=== PATIENT | female | born 1985 | race American Indian/Alaskan Native ===

== ENCOUNTER 2018-02-22 08:51 | Emergency (ER) | payer BC ==
[2018-02-22 09:02] VITALS: BP 128/83
[2018-02-22] MEDS ORDERED: XYLOCAINE 1% MPF 5 mL ONE (09:55)
[2018-02-22] MEDS ORDERED: XYLOCAINE 1%/ EPI 1:100,000 INFILTRATI ONE (09:59)
[2018-02-22] MEDS ORDERED: XYLOCAINE 1% MPF 5 mL INFILTRATI ONE (10:08)
[2018-02-22 10:13] LABS: HCG Qualitative,Urine Positive (Negative)
[2018-02-22 10:16] LABS: Bacteria,Urine 1+ /HPF (Negative); Bilirubin,Urine NEG (Negative); Blood,Urine NEG (Negative); Color,Urine Yellow (Yellow); Mucus,Urine 1+ /HPF; Protein,Urine <15 mg/dL mg/dL (Negative); Urobilinogen,Urine < 2.0 mg/dL (<2.0)
--- NOTE | 2018-02-22 10:54 | Emergency Department Report ---
ED Female HPI - General Chief complaint: Urogenital-Female Stated complaint: BOIL/VAGINA Time Seen by Provider: 02/22/18 09:45 Source: patient Mode of arrival: Ambulatory Limitations: No Limitations - History of Present Illness Initial comments: ms Morrison is a 32 year-old woman who presents with vaginal dc, vaginal swelling. Large swollen boil since tuesday. has been applying heat packs without any drainage. is 9 weeks , has OB. No home meds. Noticed some dysuria and vaginal dc for 3-4 days as well. no fever. No abdominal pain. MD Complaint: vaginal discharge, dysuria - Related Data Previous Rx's Medication Instructions Recorded Last Taken Type Fluconazole [Diflucan] 150 mg PO ONCE #1 tablet 02/11/18 Unknown Rx Labetalol [Normodyne TAB] 100 mg PO BID #60 tablet 02/11/18 Unknown Rx Nitrofurantoin Monohyd/M-Cryst 100 mg PO BID #10 capsule 02/11/18 Unknown Rx [Macrobid 100 mg Capsule] Amoxicillin/K Clav Tab [Augmentin 1 tab PO QDAY #7 tab 02/22/18 Unknown Rx 875 mg] Allergies Allergy/AdvReac Type Severity Reaction Status Date / Time iodine Allergy Hives Verified 02/11/18 11:18 shellfish derived Allergy Hives Verified 02/22/18 08:57 ED Review of Systems ROS: Stated complaint: BOIL/VAGINA Other details as noted in HPI Comment: All other systems reviewed and negative ED Past Medical Hx - Past Medical History Previous Medical History?: Yes Hx Hypertension: Yes Hx Asthma: Yes - Surgical History Past Surgical History?: No - Social History Smoking Status: Never Smoker Substance Use Type: None - Medications Home Medications: Home Medications Medication Instructions Recorded Confirmed Last Taken Type Fluconazole [Diflucan] 150 mg PO ONCE #1 tablet 02/11/18 Unknown Rx Labetalol [Normodyne TAB] 100 mg PO BID #60 tablet 02/11/18 Unknown Rx Nitrofurantoin Monohyd/M-Cryst 100 mg PO BID #10 capsule 02/11/18 Unknown Rx [Macrobid 100 mg Capsule] Amoxicillin/K Clav Tab [Augmentin 1 tab PO QDAY #7 tab 02/22/18 Unknown Rx 875 mg] ED Physical Exam - General Limitations: No Limitations General appearance: alert, in no apparent distress - Head Head exam: Present: atraumatic, normocephalic - Eye Eye exam: Present: normal appearance - ENT ENT exam: Present: normal exam, mucous membranes moist - GI/Abdominal GI/Abdominal exam: Present: soft. Absent: distended, tenderness, guarding - External exam: Present: swelling, other (Large right labial swelling, fluctuance , ttp, no drainage). Absent: bleeding Speculum exam: Present: normal speculum exam, vaginal discharge. Absent: cervical discharge, vaginal bleeding, foreign body Bi-manual exam: Present: normal bi-manual exam. Absent: cervical motion tendernes, adnexal tenderness, adnexal mass - Neurological Exam Neurological exam: Present: alert, oriented X3, normal gait - Skin Skin exam: Present: warm, dry, intact ED Course Vital Signs 02/22/18 08:57 Temperature 99.1 F Pulse Rate 86 Respiratory 16 Rate Blood Pressure 128/83 O2 Sat by Pulse 97 Oximetry - I & D Right Vagina Type of Procedure: Simple Site: R labia Blade Size: 11 I & D Procedure: betadine prep Progress: left labial abscess. Appears to be bartholins gland abscess. Chlorhexidine prep. Local anesthestic with 1% lidocaine with epi, 2mL. Incised and drained with 11-blade. about 10mL pus drained. Tolerated well. ED Medical Decision Making - Medical Decision Making Ms Morrison is a 32 year-old woman who presents with vaginal swelling, vaginal dc , dysuria. Exam with large bartholins abscess, drained per procedure note. Scant white vaginal dc. No abdominal ttp. Suspect BV vs GC/CT vs UTI. Is , knows this. Has OB. UA with evidence of UTI. Wet prep neg. GC/CT pending. Large bartholins abscess, will treat. Home with augmentin 875mg qd x 7 days. Has OB follow-up next week. Augmentin should treat UTI, will have test of cure with OB. Safe for dc to home. Critical care attestation.: If time is entered above; I have spent that time in minutes in the direct care of this critically ill patient, excluding procedure time. ED Disposition Clinical Impression: Bartholin's gland abscess Urinary tract infection Qualifiers: Urinary tract infection type: acute cystitis Hematuria presence: without hematuria Qualified Code(s): N30.00 - Acute cystitis without hematuria Qualifiers: Weeks of gestation: 9 weeks Qualified Code(s): Z3A.09 - 9 weeks gestation of Disposition: DC-01 TO HOME OR SELFCARE Is pt being admited?: No Condition: Stable Instructions: Incision and Drainage (ED), Urinary Tract Infection in Women (ED) Referrals: PRIMARY CARE,MD [Primary Care Provider] - 7-10 days (Your GLOBAL MOBILITY SPECIALIST. you need to have a repeat urinalysis done!)
[2018-02-22] MEDS ORDERED: PERCOCET 5/325 PO ONE (11:23)
== END 2018-02-22 11:30 | disposition home or self-care (01) ==
LOC: ED 08:51
DX: O23.591 Infection of other part of genital tract in pregnancy, first trimester (principal); N30.00 Acute cystitis without hematuria; N75.1 Abscess of Bartholin's gland; I10 Essential (primary) hypertension; J45.909 Unspecified asthma, uncomplicated; Z91.013 Allergy to seafood; Z3A.09 9 weeks gestation of pregnancy; Z91.02 Food additives allergy status
CPT/HCPCS: 81001; 81025; 87210; 87591

== ENCOUNTER 2018-04-01 11:39 | Emergency (ER) | payer BC ==
--- NOTE | 2018-04-01 11:56 | Emergency Department Report ---
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 She is 3, para 1. Her last menstrual period is the first. She has a history of associated hypertension, and is currently on labetalol. She presents to the ER with abdominal cramping that is nontraumatic and vaginal bleeding since last night. Her symptoms are constant, the cramping increases with palpation, decreases with rest, and she has used one to 2 pads in the past few hours. MD Complaint: vaginal bleeding, pelvic pain, other (abdominal cramping) -: Gradual Radiation: suprapubic Severity: moderate Quality: cramping Consistency: intermittent Improves with: other Worsens with: other Are you Now?: Yes Associated Symptoms: vaginal bleeding, abdominal pain, loss of appetite, dysuria. denies: vaginal discharge, nausea/vomiting, fever/chills, headaches, hematuria, rash, seizure, shortness of breath, syncope, weakness - Related Data Sexually active: Yes Previous Rx's Medication Instructions Recorded Last Taken Type Fluconazole [Diflucan] 150 mg PO ONCE #1 tablet 02/11/18 Unknown Rx Labetalol [Normodyne TAB] 100 mg PO BID #60 tablet 02/11/18 Unknown Rx Nitrofurantoin Monohyd/M-Cryst 100 mg PO BID #10 capsule 02/11/18 Unknown Rx [Macrobid 100 mg Capsule] Amoxicillin/K Clav Tab [Augmentin 1 tab PO QDAY #7 tab 02/22/18 Unknown Rx 875 mg] Acetaminophen [Tylenol Arthritis] 650 mg PO Q6HR PRN #30 tablet.er 04/01/18 Unknown Rx Doxylamine Succinate/Vit B6 1 each PO QHS PRN #30 tablet. 04/01/18 Unknown Rx [Divine Aragon 10-10 mg Tablet] Nitrofurantoin Ashley/M-Cryst 100 mg PO Q12HR #14 capsule 04/01/18 Unknown Rx [Macrobid CAP] Vit Calc,Iron,Folic 1 each PO QDAY #30 tablet 04/01/18 Unknown Rx [ Vitamins] Allergies Allergy/AdvReac Type Severity Reaction Status Date / Time iodine Allergy Hives Verified 04/01/18 11:41 shellfish derived Allergy Hives Verified 04/01/18 11:41 ED Review of Systems ROS: Stated complaint: [email or web address] Other details as noted in HPI Comment: All other systems reviewed and negative ED Past Medical Hx - Past Medical History Hx Hypertension: Yes Hx Asthma: Yes - Social History Smoking Status: Former Smoker Substance Use Type: None - Medications Home Medications: Home Medications Medication Instructions Recorded Confirmed Last Taken Type Fluconazole [Diflucan] 150 mg PO ONCE #1 tablet 02/11/18 Unknown Rx Labetalol [Normodyne TAB] 100 mg PO BID #60 tablet 02/11/18 Unknown Rx Nitrofurantoin Monohyd/M-Cryst 100 mg PO BID #10 capsule 02/11/18 Unknown Rx [Macrobid 100 mg Capsule] Amoxicillin/K Clav Tab [Augmentin 1 tab PO QDAY #7 tab 02/22/18 Unknown Rx 875 mg] Acetaminophen [Tylenol Arthritis] 650 mg PO Q6HR PRN #30 tablet.er 04/01/18 Unknown Rx Doxylamine Succinate/Vit B6 1 each PO QHS PRN #30 tablet. 04/01/18 Unknown Rx [Divine Aragon 10-10 mg Tablet] Nitrofurantoin Ashley/M-Cryst 100 mg PO Q12HR #14 capsule 04/01/18 Unknown Rx [Macrobid CAP] Vit Calc,Iron,Folic 1 each PO QDAY #30 tablet 04/01/18 Unknown Rx [ Vitamins] ED Physical Exam - General Limitations: No Limitations General appearance: alert, anxious, obese - Head Head exam: Present: atraumatic, normocephalic - Eye Eye exam: Present: normal appearance, EOMI. Absent: nystagmus - ENT ENT exam: Present: normal exam, normal orophraynx, mucous membranes moist, normal external ear exam - Neck Neck exam: Present: normal inspection, full ROM - Respiratory Respiratory exam: Present: normal lung sounds bilaterally. Absent: respiratory distress - Cardiovascular Cardiovascular Exam: Present: regular rate, normal rhythm, normal heart sounds. Absent: bradycardia, tachycardia, irregular rhythm, systolic murmur, diastolic murmur, rubs, gallop - GI/Abdominal GI/Abdominal exam: Present: soft, normal bowel sounds. Absent: distended, tenderness, guarding, rebound, rigid, pulsatile mass - External exam: Present: normal external exam Speculum exam: Present: normal speculum exam, vaginal bleeding, other ( chaperonne: MARCELINO Linton). Absent: laceration - Extremities Exam Extremities exam: Present: normal inspection, full ROM, normal capillary refill , other (2+ pulses noted in the bilateral upper, lower extremities. Compartments soft. No long bony tenderness. The pelvis is stable.). Absent: pedal edema, joint swelling, calf tenderness - Back Exam Back exam: Present: normal inspection, full ROM. Absent: tenderness, CVA tenderness (R), paraspinal tenderness, vertebral tenderness - Neurological Exam Neurological exam: Present: alert, oriented X3, CN II-XII intact, normal gait, other (Extraocular movements intact. Tongue midline. No facial droop. Facial sensation intact to light touch in the V1, V2, V3 distribution bilaterally. 5 and 5 strength in 4 extremities.. Sensation is intact to light touch in 4 extremities.). Absent: motor sensory deficit - Psychiatric Psychiatric exam: Present: anxious - Skin Skin exam: Present: warm, dry, intact, normal color. Absent: rash ED Course Vital Signs 04/01/18 04/01/18 04/01/18 11:42 12:24 12:30 Temperature 98.3 F Pulse Rate 99 H 96 H Respiratory 22 16 Rate Blood Pressure 159/113 142/96 Blood Pressure [Right] O2 Sat by Pulse 100 99 98 Oximetry 04/01/18 04/01/18 04/01/18 12:54 13:00 13:46 Temperature Pulse Rate 93 H 95 H 83 Respiratory 16 20 Rate Blood Pressure 142/96 138/93 Blood Pressure 142/96 [Right] O2 Sat by Pulse 100 100 Oximetry 04/01/18 04/01/18 14:13 14:30 Temperature Pulse Rate 94 H 111 H Respiratory 16 19 Rate Blood Pressure 138/93 138/93 Blood Pressure [Right] O2 Sat by Pulse Oximetry - Reevaluation(s) Reevaluation #1: 04/01/18 14:16 Differential diagnosis, including but not limited to: Miscarriage, was sent appropriate, urinary tract infection, hypertension associated with Assessment and plan: 32-year-old female who by dates is approximately 4 months with nontraumatic vaginal bleeding and cramping. She is somewhat hypertensive, but reports having been hypertensive for the past 4 months, reports compliance with her labetalol therapy, does not have lower extremity edema, a urinalysis is pending and liver function tests were unremarkable. Her presentation at this point in time is not consistent with preeclampsia. She is Rh+, and a pelvic ultrasound interpretation is pending at this time. We will discuss with her winchman/crane operator once the ultrasound has been interpreted. Reevaluation #2: 04/01/18 15:22 The patient reports she is going to see her winchman/crane operator on Tuesday ED Medical Decision Making - Lab Data Result diagrams: 04/01/18 12:12 04/01/18 12:12 Vital Signs 04/01/18 04/01/18 04/01/18 11:42 12:24 12:30 Temperature 98.3 F Pulse Rate 99 H 96 H Respiratory 22 16 Rate Blood Pressure 159/113 142/96 Blood Pressure [Right] O2 Sat by Pulse 100 99 98 Oximetry 04/01/18 04/01/18 04/01/18 12:54 13:00 13:46 Temperature Pulse Rate 93 H 95 H 83 Respiratory 16 20 Rate Blood Pressure 142/96 138/93 Blood Pressure 142/96 [Right] O2 Sat by Pulse 100 100 Oximetry Lab Results 04/01/18 04/01/18 04/01/18 Range/Units 12:12 12:12 12:12 WBC 10.6 (4.5-11.0) K/mm3 RBC 4.51 (3.65-5.03) M/mm3 Hgb 13.8 (10.1-14.3) gm/dl Hct 41.2 (30.3-42.9) % MCV 91 (79-97) fl MCH 31 (28-32) pg MCHC 33 (30-34) % RDW 14.1 (13.2-15.2) % Plt Count 303 (140-440) K/mm3 Lymph % (Auto) 29.5 (13.4-35.0) % Ashley % (Auto) 5.3 (0.0-7.3) % Eos % (Auto) 2.0 (0.0-4.3) % Baso % (Auto) 0.4 (0.0-1.8) % Lymph # 3.1 (1.2-5.4) K/mm3 Ashley # 0.6 (0.0-0.8) K/mm3 Eos # 0.2 (0.0-0.4) K/mm3 Baso # 0.0 (0.0-0.1) K/mm3 Seg Neutrophils % 62.8 (40.0-70.0) % Seg Neutrophils # 6.6 (1.8-7.7) K/mm3 Sodium (137-145) mmol/L Potassium (3.6-5.0) mmol/L Chloride (98-107) mmol/L Carbon Dioxide (22-30) mmol/L Anion Gap mmol/L BUN (7-17) mg/dL Creatinine (0.7-1.2) mg/dL Estimated GFR ml/min BUN/Creatinine Ratio % Glucose (65-100) mg/dL Calcium (8.4-10.2) mg/dL Total Bilirubin (0.1-1.2) mg/dL AST (5-40) units/L ALT (7-56) units/L Alkaline Phosphatase (35-129) units/L Total Protein (6.3-8.2) g/dL Albumin (3.9-5) g/dL Albumin/Globulin Ratio % HCG, Quant 26403 H (0-4) mIU/mL Blood Type A POSITIVE Antibody Screen Negative 04/01/18 Range/Units 12:12 WBC (4.5-11.0) K/mm3 RBC (3.65-5.03) M/mm3 Hgb (10.1-14.3) gm/dl Hct (30.3-42.9) % MCV (79-97) fl MCH (28-32) pg MCHC (30-34) % RDW (13.2-15.2) % Plt Count (140-440) K/mm3 Lymph % (Auto) (13.4-35.0) % Ashley % (Auto) (0.0-7.3) % Eos % (Auto) (0.0-4.3) % Baso % (Auto) (0.0-1.8) % Lymph # (1.2-5.4) K/mm3 Ashley # (0.0-0.8) K/mm3 Eos # (0.0-0.4) K/mm3 Baso # (0.0-0.1) K/mm3 Seg Neutrophils % (40.0-70.0) % Seg Neutrophils # (1.8-7.7) K/mm3 Sodium 137 (137-145) mmol/L Potassium 3.7 (3.6-5.0) mmol/L Chloride 99.1 (98-107) mmol/L Carbon Dioxide 23 (22-30) mmol/L Anion Gap 19 mmol/L BUN 6 L (7-17) mg/dL Creatinine 0.6 L (0.7-1.2) mg/dL Estimated GFR > 60 ml/min BUN/Creatinine Ratio 10 % Glucose 76 (65-100) mg/dL Calcium 9.5 (8.4-10.2) mg/dL Total Bilirubin 0.20 (0.1-1.2) mg/dL AST 38 (5-40) units/L ALT 54 (7-56) units/L Alkaline Phosphatase 49 (35-129) units/L Total Protein 7.5 (6.3-8.2) g/dL Albumin 3.8 L (3.9-5) g/dL Albumin/Globulin Ratio 1.0 % HCG, Quant (0-4) mIU/mL Blood Type Antibody Screen - Radiology Data Radiology results: pending, report reviewed, image reviewed [place] [id number] Ultrasound Report Signed Patient: SIMONE MCKINNON MR#: [id number] : 1985 Acct:[id number] Age/Sex: 32 / F ADM Date: 04/01/18 Loc: ED Attending Dr: Ordering Physician: LISA PRATT MD Date of Service: 04/01/18 Procedure(s): US OB >= 14 weeks Fetus Accession Number(s): [id number] cc: LISA PRATT MD FINAL REPORT EXAM: US OB gt; = 14 WEEKS FETUS HISTORY: vag bleed TECHNIQUE: Transabdominal OB ultrasound. PRIORS: Earliest OB ultrasound February 11, 2018. FINDINGS: Single intrauterine dates 16.3 weeks. THEE equals September 13, 2018. This is 4 days older compared to the prior ultrasound and is within normal limits. EFW equals 151 g. percentile equals 70%. BPD: 16.3 weeks. HC: 16.5 weeks. AC: 16.1 weeks. FL: 16.2 weeks. AC/AC ratio: 1.30 Cephalic index 81.1. Within normal limits. Presentation: Breech. Placenta: Posterior. Grade 0. No previa. heart rate: 147 BPM. Amniotic fluid index: Within normal limits. Closed cervix measures 4.1 cm. No subchorionic bleed. IMPRESSION: Single live intrauterine . Transcribed By: TYM Dictated By: LILLIAN BROWNLEE MD Electronically Authenticated By: LILLIAN BROWNLEE MD Signed Date/Time: 04/01/18 2340 Critical care attestation.: If time is entered above; I have spent that time in minutes in the direct care of this critically ill patient, excluding procedure time. ED Disposition Clinical Impression: Vaginal bleeding before 22 weeks gestation Disposition: DC-01 TO HOME OR SELFCARE Is pt being admited?: No Does the pt Need Aspirin: No Condition: Stable Instructions: Threatened Miscarriage (ED) Additional Instructions: Rest, and avoid heavy lifting. Avoid strenuous physical activity. Take the medications as needed/directed. Avoid heavy lifting, and avoid sexual activity. Follow-up with her winchman/crane operator or high risk perinatologist within the next 3-5 days. [facility] associates: Address: [address] [place] [address] [address], [place] [address] Return to the ER right away with new pain, worsening pain, migration of pain, fevers, chills, lethargy, irritability, projectile vomiting, change in mental status, confusion, inability to tolerate liquid feeds. Prescriptions: Doxylamine Succinate/Vit B6 [Divine Aragon 10-10 mg Tablet] 1 each PO QHS PRN #30 tablet. PRN Reason: Nausea Acetaminophen [Tylenol Arthritis] 650 mg PO Q6HR PRN #30 tablet.er PRN Reason: Pain Nitrofurantoin Ashley/M-Cryst [Macrobid CAP] 100 mg PO Q12HR #14 capsule Vit Calc,Iron,Folic [ Vitamins] 1 each PO QDAY #30 tablet Referrals: PRIMARY CAREMD [Primary Care Provider] - 3-5 Days [facility] [Provider Group] - 3-5 Days
[2018-04-01] MEDS ORDERED: TYLENOL PO ONE (12:58)
[2018-04-01 13:00] LABS: Basophils % (Auto) 0.4 % (0.0-1.8); Eosinophils # (Auto) 0.2 K/mm3 (0.0-0.4); Hematocrit 41.2 % (30.3-42.9); Hemoglobin 13.8 gm/dl (10.1-14.3); Lymphocytes # (Auto) 3.1 K/mm3 (1.2-5.4); Lymphocytes % (Auto) 29.5 % (13.4-35.0); Mean Corpuscular HGB Conc 33 % (30-34); Mean Corpuscular Hemoglobin 31 pg (28-32); Mean Corpuscular Volume 91 fl (79-97); Monocytes # (Auto) 0.6 K/mm3 (0.0-0.8); Monocytes % (Auto) 5.3 % (0.0-7.3); Platelet Count 303 K/mm3 (140-440); Red Blood Count 4.51 M/mm3 (3.65-5.03); Red Cell Distribution Width 14.1 % (13.2-15.2)
[2018-04-01 13:37] LABS: Alanine Aminotransferase 54 units/L (7-56); Albumin 3.8 g/dL (3.9-5); BUN/Creatinine Ratio 10; Blood Urea Nitrogen 6 mg/dL (7-17); Calcium 9.5 mg/dL (8.4-10.2); Hemolysis Index 3
[2018-04-01 14:12] VITALS: BP 138/93
[2018-04-01 14:34] LABS: Bacteria,Urine 1+ /HPF (Negative); Bilirubin,Urine NEG (Negative); Blood,Urine LG (Negative); Mucus,Urine FEW /HPF; Urobilinogen,Urine < 2.0 mg/dL (<2.0)
[2018-04-01 14:35] LABS: Color,Urine Red (Yellow); RBC,Urine > 182.0 /HPF (0.0-6.0)
--- NOTE | 2018-04-01 14:42 | Ultrasound Report ---
FINAL REPORT EXAM: US OB > = 14 WEEKS FETUS HISTORY: vag bleed TECHNIQUE: Transabdominal OB ultrasound. PRIORS: Earliest OB ultrasound February 11, 2018. FINDINGS: Single intrauterine dates 16.3 weeks. THEE equals September 13, 2018. This is 4 days older compared to the prior ultrasound and is within normal limits. EFW equals 151 g. percentile equals 70%. BPD: 16.3 weeks. HC: 16.5 weeks. AC: 16.1 weeks. FL: 16.2 weeks. AC/AC ratio: 1.30 Cephalic index 81.1. Within normal limits. Presentation: Breech. Placenta: Posterior. Grade 0. No previa. heart rate: 147 BPM. Amniotic fluid index: Within normal limits. Closed cervix measures 4.1 cm. No subchorionic bleed. IMPRESSION: Single live intrauterine .
== END 2018-04-01 16:05 | disposition home or self-care (01) ==
LOC: ED 11:39
DX: O46.92 Antepartum hemorrhage, unspecified, second trimester (principal); I10 Essential (primary) hypertension; J45.909 Unspecified asthma, uncomplicated; Z87.891 Personal history of nicotine dependence; Z88.8 Allergy status to other drugs, medicaments and biological substances; Z91.013 Allergy to seafood; Z3A.16 16 weeks gestation of pregnancy
CPT/HCPCS: 36415; 76805; 80053; 81001; 84702; 85025; 86850; 86900; 86901; 87086; 99284

== ENCOUNTER 2018-08-18 13:25 | Observation (INO) | payer BC, MEDICAID ==
--- NOTE | 2018-08-18 18:58 | Ultrasound Report ---
FINAL REPORT PROCEDURE: US OB BPP WO NON-STRESS TECHNIQUE: Sonographic evaluation for breathing, movement, tone, and amniotic flui d volume was performed. CPT 47890 HISTORY: WELL BEING COMPARISON: No prior studies are available for comparison. FINDINGS: Amniotic fluid volume: Normal-score 2. At least one vertical pocket > 2 cm or more in vertical axi s. breathing: Normal-score 0. movement: Normal-score 2. tone: Normal. Score: 6 of 8. cardiac activity is present, with heart rate of 143 beats per minute. IMPRESSION: Abnormal biophysical profile. Abnormal breathing movements.
--- NOTE | 2018-08-18 19:07 | Ultrasound Report ---
FINAL REPORT PROCEDURE: US OB LIMITED TECHNIQUE: Real-time limited sonographic examination was performed for evaluation of position, heartbeat, fluid volume for each fetus with image documentation (1 or more fetuses). CPT 06164 HISTORY: WELL BEING COMPARISON: No prior studies are available for comparison. FINDINGS: FETUS IUP: Single living intrauterine . Position: Cephalic. Amniotic fluid volume: 8.9 centimeters Heart rate and rhythm: 143 BPM, Regular . IMPRESSION: single living intrauterine gestation. Amniotic fluid index measures 8.9 centimeters.
[2018-08-18] MEDS ORDERED: LACTATED RINGERS 1,000 ML ONE (20:14)
--- NOTE | 2018-08-18 21:01 | History and Physical Report ---
History of Present Illness Date of examination: 08/18/18 Date of admission: 08/18/2018 Chief complaint: Sent from office for NST/BPP for surveillance due to chronic hypertension, class 3 obesity. BPP 01/27 (2 off for breathing). History of present illness: 33 year old presents to L&D for BPP and NST; sent over from office for surveillance due to class 3 obesity and chronic hypertension. Patient reports she feels good movement. She denies leaking of fluid or vaginal bleeding. She denies abdominal pain or contractions. Receives care at [facility] OB-HOME HEALTH REGISTERED NURSE [facility]. significant for the following: transfer of care to at 18 5/7 weeks gestation; chronic hypertension (managed on Labetalol 300 mg po BID); class 3 obesity; positive chlamydia, treated and cured (SOLOMON negative on 04/19); asthma; with IUD and IUD unable to be removed. LMP 12/07/17. EDC 09/13/18. Past History Past Medical History: asthma, hypertension, other (obesity) Past Surgical History: other (EAB) HOME HEALTH REGISTERED NURSE History: chlamydia (treated and cured (SOLOMON negative in 03/2018)). denies: abnormal PAP smear, gonorrhea, hepatitis B, hepatitis C, HIV, syphilis Family/Genetic History: other (asthma) Social history: single, lives with family, full code. denies: smoking, alcohol abuse, prescription drug abuse, IV drug use - Obstetrical History Expected Date of Delivery: 09/13/18 Actual Gestation: 36 Week(s) 2 Day(s) : 3 Para: 1 Hx # Term Pregnancies: 1 Number of Pregnancies: 0 Spontaneous Abortions: 0 Induced : 1 Number of Living Children: 1 Medications and Allergies Allergies Allergy/AdvReac Type Severity Reaction Status Date / Time shellfish derived Allergy Severe Anaphylaxis Verified 08/18/18 19:54 aspirin Allergy Hives Verified 08/03/18 17:12 Iodinated Contrast- Oral and Allergy Anaphylaxis Verified 08/18/18 19:54 IV Dye iodine Allergy Hives Verified 08/03/18 17:12 Home Medications Medication Instructions Recorded Confirmed Last Taken Type Acetaminophen [Tylenol Arthritis] 650 mg PO Q6HR PRN #30 tablet.er 04/01/18 08/18/18 08/17/18 Rx Vit Calc,Iron,Folic 1 each PO QDAY #30 tablet 04/01/18 08/18/18 08/18/18 Rx [ Vitamins] Labetalol [Normodyne TAB] 300 mg PO BID 08/18/18 08/18/18 08/18/18 19:00 History Active Meds: Active Medications Multivitamins/Iron/Calcium ( Vitamin) 1 each PO QDAY AMADOR Review of Systems All systems: negative (BPP 6/8) - Vital Signs Vital signs: Vital Signs Temp Resp 98.3 F 08/18/18 19:44 08/18/18 19:44 Temp Pulse Resp BP Pulse Ox 98.3 F 08/18/18 19:44 08/18/18 19:44 - Physical Exam Abdomen: Positive: normal appearance, soft. Negative: distention, tenderness, guarding, rigidity Genitourinary (Female): Positive: normal external genitalia, normal perenium. Negative: perineal/vulvar lesions Uterus: Positive: enlarged. Negative: tender Extremities: Positive: normal. Negative: tenderness, edema - Obstetrical FHR: category 1 Uterine Contraction Monitor Mode: External Uterine Contraction Pattern: Absent Results All other labs normal. Assessment and Plan A: at 36 weeks, 2 days gestation. Chronic hypertension, controlled with Labetalol 300 mg po BID. Class 3 obesity. BPP 6/8 (2 off for breathing). P: Admit for 23 hour observation. Continuous EFM. Repeat BPP tomorrow. Continue Labetalol 300 mg po BID.
[2018-08-18] MEDS ORDERED: TYLENOL PO PRN (21:13)
[2018-08-18] MEDS ORDERED: LACTATED RINGERS 1,000 ML IV ONE (21:13)
[2018-08-19 00:48] LABS: Amphetamine Screen,Urine PRESUMPTIVE NEGATIVE; Benzodiazepines Screen,Urine PRESUMPTIVE NEGATIVE; Cannabinoid Screen,Urine PRESUMPTIVE NEGATIVE; Cocaine Screen,Urine PRESUMPTIVE NEGATIVE; Methadone Screen,Urine PRESUMPTIVE NEGATIVE; Opiate Screen,Urine PRESUMPTIVE NEGATIVE
[2018-08-19] MEDS ORDERED: LACTATED RINGERS 1,000 ML ONE (04:26)
[2018-08-19] MEDS ORDERED: NORMODYNE PO SCH (07:00)
[2018-08-19] MEDS ORDERED: LACTATED RINGERS 1,000 ML IV SCH (08:00)
[2018-08-19] MEDS ORDERED: PRENATAL VITAMIN PO SCH (10:00)
[2018-08-19 12:45] VITALS: BP 143/83
--- NOTE | 2018-08-19 12:51 | Progress Note ---
Assessment and Plan A: at 36 weeks, 3 days gestation. BPP 8/8 and normal ARMANDO. Chronic hypertension, controlled on Labetalol. Class 3 obesity. P: Discharge patient home. Instructed patient to perform daily movement counting and keep her scheduled follow up visit with [facility] OB-LOGGING SHOVEL OPERATOR next week. Pt. voiced understanding of instructions. Subjective - Subjective Date of service: 08/19/18 Principal diagnosis: at 36 weeks, 3 days gestation. History of BPP 6/8. Interval history: Patient was observed overnight and had category 1 heart rate tracing. US repeated today: ARMANDO 12.2 cm. BPP 8/8. Patient has no complaints. She desires discharge. Patient reports: movement normal, no new complaints, no loss of fluid, no vaginal bleeding Objective - Vital Signs Vital Signs: Vital Signs - 12hr 08/19/18 08/19/18 08/19/18 04:25 04:26 07:25 Temperature 97.9 F Pulse Rate 96 H 89 Respiratory 18 Rate Blood Pressure 110/65 135/78 Blood Pressure [Left] 08/19/18 08/19/18 08/19/18 07:36 07:38 12:44 Temperature Pulse Rate 89 85 Respiratory Rate Blood Pressure 135/78 143/83 Blood Pressure 135/78 [Left] - Exam Narrative Exam: BPP 8/8; normal ARMANDO. - Labs Labs: Laboratory Results - last 24 hr 08/18/18 00:30 Urine Opiates Screen Presumptive negative Urine Methadone Screen Presumptive negative Ur Barbiturates Screen Presumptive negative Ur Phencyclidine Scrn Presumptive negative Ur Amphetamines Screen Presumptive negative U Benzodiazepines Scrn Presumptive negative Urine Cocaine Screen Presumptive negative U Marijuana (THC) Screen Presumptive negative Drugs of Abuse Note Disclamer
--- NOTE | 2018-08-19 12:57 | Ultrasound Report ---
FINAL REPORT EXAM: US OB BPP WO NON-STRESS HISTORY: well being TECHNIQUE: Sonographic biophysical profile performed PRIORS: None. FINDINGS: There is a single live intrauterine of approximately 36 weeks 3 days according to the provi ded THEE of 09/13/2018. position is cephalic. Amniotic fluid volume is normal with ARMANDO of 12.2 cm. cardiac activity is measured at 138 bpm. biophysical profile: breathing movements: 2 Gross body movements: 2 tone: 2 Amniotic fluid volume: 2 Score: 8 out of 8. IMPRESSION: Normal biophysical profile scoring 8 out of 8
--- NOTE | 2018-08-19 12:58 | Discharge Summary ---
Providers - Providers Date of Admission: 08/18/18 20:15 Date of discharge: 08/19/18 Attending physician: REBECCA VALENZUELA MD None Primary care physician: REBECCA VALENZUELA MD Hospitalization Pertinent studies: Ultrasound Hospital course: Normal hospital course Condition at discharge: Good Disposition: [id number] TO HOME OR SELFCARE - Discharge Diagnoses (1) Status: Acute (2) Chronic hypertension Status: Acute Plan - Provider Discharge Summary Additional instructions: Advised patient to perform daily movement count. Advised patient to follow up at [facility] next week as scheduled. - Follow up plan Follow up: REBECCA VALENZUELA MD [Primary Care Provider] - 7 Days
--- NOTE | 2018-08-19 12:59 | Ultrasound Report ---
FINAL REPORT EXAM: US OB LIMITED HISTORY: ARMANDO TECHNIQUE: Limited obstetrical ultrasound performed. PRIORS: None. FINDINGS: There is a single live intrauterine . Gestational age is 36 weeks 3 days according to provid ed THEE of 09/13/2018. position is transverse head maternal left. Amniotic fluid index is normal measured at 12.2 cm. Survey of anatomy not performed. cardiac activity seen, measured at 138 beats per minute. IMPRESSION: Single live intrauterine of approximately 36 weeks 3 days. Normal amniotic fluid volume wit h ARMANDO of 12.2 cm. Transverse lie with head maternal left.
== END 2018-08-19 13:30 | disposition home or self-care (01) ==
LOC: TRG 13:25 → LD 19:38 → TRG 20:15
PROVIDERS: ADMIT Obstetrics & Gynecology; ATTEND Obstetrics & Gynecology
DX: O10.913 Unspecified pre-existing hypertension complicating pregnancy, third trimester (principal); O99.214 Obesity complicating childbirth; O99.513 Diseases of the respiratory system complicating pregnancy, third trimester; J45.909 Unspecified asthma, uncomplicated; Z3A.36 36 weeks gestation of pregnancy
CPT/HCPCS: 59025; 76815; 76819; 80307; G0378; J7120

== ENCOUNTER 2018-08-30 10:59 | Inpatient (IN) | payer BC, MEDICAID ==
[2018-08-30] MEDS ORDERED: LACTATED RINGERS 1,000 ML ONE (11:56)
[2018-08-30] MEDS ORDERED: BRETHINE SUB-Q PRN (12:30)
[2018-08-30] MEDS ORDERED: BRETHINE IVP PRN (12:30)
[2018-08-30] MEDS ORDERED: NARCAN 0.4 MG/1 ML IV PRN (12:30)
[2018-08-30] MEDS ORDERED: ZOFRAN IV PRN (12:30)
[2018-08-30] MEDS ORDERED: MAGNESIUM SULFATE 4GM/100ML 4 GM/100 ML BAG IV ONE (12:30)
[2018-08-30] MEDS ORDERED: XYLOCAINE 2% INFILTRATI NR (12:30)
[2018-08-30] MEDS: LACTATED RINGERS 1,000 ML IV SCH (12:33)
--- NOTE | 2018-08-30 12:37 | History and Physical Report ---
History of Present Illness Date of examination: 08/30/18 Date of admission: 08/30/18 10:59 Chief complaint: Presents for induction of labor due to Chronic Hypertenion with superimposed PIH History of present illness: Transfer into care at 18 5/7 weeks, co-roxanne with [facility] due to CHTN, Asthma, and Morbid obesity. Also co-roxanne with Pulmonology due to poorly controlled Asthma. Second trimester complicated by Chlamydia, treated with a Negative SOLOMON. Past History Past Medical History: asthma, hypertension Past Surgical History: tonsillectomy [employer] History: chlamydia Family/Genetic History: none Social history: no significant social history, - Obstetrical History Expected Date of Delivery: 09/13/18 Actual Gestation: 38 Week(s) 0 Day(s) : 3 Para: 1 Induced : 1 Number of Living Children: 1 #1 Gender: Male year: Birthweight: 3.175 kg Method of Delivery: Vaginal Complications: none Medications and Allergies Allergies Allergy/AdvReac Type Severity Reaction Status Date / Time shellfish derived Allergy Severe Anaphylaxis Verified 08/30/18 11:49 aspirin Allergy Hives Verified 08/30/18 11:49 Iodinated Contrast- Oral and Allergy Anaphylaxis Verified 08/30/18 11:49 IV Dye iodine Allergy Hives Verified 08/30/18 11:49 Home Medications Medication Instructions Recorded Confirmed Last Taken Type Acetaminophen [Tylenol Arthritis] 650 mg PO Q6HR PRN #30 tablet.er 04/01/18 08/18/18 08/17/18 Rx Vit Calc,Iron,Folic 1 each PO QDAY #30 tablet 04/01/18 08/18/18 08/18/18 Rx [ Vitamins] Labetalol [Normodyne TAB] 300 mg PO BID 08/18/18 08/18/18 08/18/18 19:00 History Active Meds: Active Medications Butorphanol Tartrate (Stadol) 2 mg IV Q2H PRN PRN Reason: Pain , Severe (7-10) Ephedrine Sulfate (Ephedrine Sulfate) 10 mg IV Q2M PRN PRN Reason: Hypotension Ampicillin Sodium (Ampicillin/Ns 1 Gm/50 Ml) 1 gm in 50 mls @ 100 mls/hr IV Q4H AMADOR; Protocol Ampicillin Sodium (Polycillin/Ns 2 Gm/100 Ml) 2 gm in 100 mls @ 100 mls/hr IV ONCE ONE; Protocol Stop: 08/30/18 13:59 Lactated Ringer's (Lactated Ringers) 1,000 mls @ 125 mls/hr IV DIRECT AMADOR Oxytocin/Sodium Chloride (Pitocin/Ns 20 Unit/1000ml Drip) 20 units in 1,000 mls @ 125 mls/hr IV DIRECT AMADOR Oxytocin/Sodium Chloride (Pitocin/Ns 30 Unit/500ml) 30 units in 500 mls @ 4 mls/hr IV TITR AMADOR; Protocol Magnesium Sulfate (Magnesium Sulfate 40gm/1000ml) 40 gm in 1,000 mls @ 50 mls/hr IV DIRECT AMADOR Magnesium Sulfate (Magnesium Sulfate 4gm/100ml) 4 gm in 100 mls @ 300 mls/hr IV ONCE ONE Stop: 08/30/18 12:49 Labetalol HCl (Normodyne) 300 mg PO BID AMADOR Lidocaine (Xylocaine 2%) 20 ml INFILTRATI ONCE NR Stop: 08/31/18 12:29 Mineral Oil (Mineral Oil) 30 ml PO QHS PRN PRN Reason: Constipation Naloxone HCl (Narcan 0.4 Mg/1 Ml) 0.1 mg IV Q2MIN PRN PRN Reason: Res Rate </= 8 or 02 SAT < 92% Ondansetron HCl (Zofran) 4 mg IV Q8H PRN PRN Reason: Nausea And Vomiting Terbutaline Sulfate (Brethine) 0.25 mg SUB-Q ONCE PRN PRN Reason: Hyperstimulation/Hypertonicity Terbutaline Sulfate (Brethine) 0.25 mg IVP ONCE PRN PRN Reason: Hyperstimulation/Hypertonicity Review of Systems All systems: negative - Vital Signs Vital signs: Vital Signs Pulse BP 96 H 152/106 08/30/18 11:43 08/30/18 11:43 Temp Pulse Resp BP Pulse Ox 97.0 F L 92 H 18 135/78 08/30/18 11:48 08/30/18 12:32 08/30/18 11:48 08/30/18 12:32 - Physical Exam Breasts: Positive: normal Cardiovascular: Regular rate Lungs: Positive: Normal air movement Abdomen: Positive: normal appearance, soft, normal bowel sounds Genitourinary (Female): Positive: normal external genitalia, normal perenium Vagina: Positive: normal moisture Uterus: Positive: enlarged Extremities: Positive: normal - Obstetrical FHR: category 1 Uterine Contraction Monitor Mode: External Cervical Dilatation: 2 Cervical Effacement Percentage: 70 Results Abnormal lab results 08/30/18 Range/Units 12:29 POC Glucose 65 L (70-105) All other labs normal. Assessment and Plan A: IUP @ 38 Weeks CHTN with superimposed PIH Morbid Obesity Asthma GBS Positive P: Admit to L&D per Routine Orders PIH labs Magnesium Sulfate 4G loading dose/ 2G hourly Labetolol 300mg PO BID GBS Prophylaxis Pitocin Induction Dr. Garcia Consulted
[2018-08-30 12:45] LABS: Hematocrit 40.3 % (30.3-42.9); Hemoglobin 13.6 gm/dl (10.1-14.3); Mean Corpuscular HGB Conc 34 % (30-34); Mean Corpuscular Volume 91 fl (79-97); Platelet Count 257 K/mm3 (140-440); Red Blood Count 4.42 M/mm3 (3.65-5.03); Red Cell Distribution Width 14.1 % (13.2-15.2)
[2018-08-30 12:48] LABS: Bacteria,Urine 1+ /HPF (Negative); Bilirubin,Urine NEG (Negative); Blood,Urine NEG (Negative); Color,Urine Yellow (Yellow); Mucus,Urine FEW /HPF; Protein,Urine <15 mg/dL mg/dL (Negative); Urobilinogen,Urine < 2.0 mg/dL (<2.0)
[2018-08-30] MEDS ORDERED: PITOCin/NS 20 UNIT/1000ML DRIP 20 UNITS/1,000 ML BAG IV SCH (13:00)
[2018-08-30] MEDS ORDERED: NORMODYNE PO SCH (13:00)
[2018-08-30] MEDS ORDERED: MINERAL OIL PO PRN (13:00)
[2018-08-30] MEDS ORDERED: AMPICILLIN/NS 2 GM/100 ML 2 GM/100 ML BAG IV ONE (13:00)
[2018-08-30] MEDS ORDERED: PITOCin/NS 30 UNIT/500ML 30 UNITS/500 ML BAG IV SCH (13:00)
[2018-08-30 13:05] LABS: Alanine Aminotransferase 16 units/L (7-56); Uric Acid 4.2 mg/dL (3.5-7.6)
[2018-08-30] MEDS: MAGNESIUM SULFATE 40GM/1000ML 40 GM/1,000 ML BAG IV SCH (13:43)
--- NOTE | 2018-08-30 14:23 | Progress Note ---
Assessment and Plan - Patient Problems (1) 38 weeks gestation of Current Visit: Yes Status: Acute (2) Pre-eclampsia superimposed on chronic hypertension Current Visit: Yes Status: Acute Plan to address problem: Toxemia labs were normal. Magnesium sulfate was started and being maintained at 2 gm/hr. Monitor Mg levels, urine output, DTRs. Monitor BP. Labetolol for BP control. Continous monitoring. Labor induction with pitocin. Anticipate . (3) Morbid obesity with BMI of 45.0-49.9, adult Current Visit: Yes Status: Acute (4) GBS bacteriuria Current Visit: Yes Status: Acute Plan to address problem: IV antibiotics in labor. Subjective - Subjective Date of service: 08/30/18 Principal diagnosis: SIUP at 38 weeks with superimposed pre-eclampsia. Interval history: Patient is a 33 year old , LMP 12/07/17, EDC 09/13/18 at 38 weeks gestation who was sent from the office for elevated BP in the 150's/100's. She has a history of CHTN and morbid obesity and has been co-managed with [facility]. She has been on labetolol. She denies any headache, visual changes or RUQ pain. She denies any contractions, fluid leakage or bleeding. She reports good movement. On admission, her BP was in the 140-150's/80's. tracing is CAT1. Cervix: 2 cm/50%/-2. Her early GCT was normal, she was sent for GCT after 24 weeks but she did not do the test. Random glucose was 65. She has GBS bacturiria. Objective - Vital Signs Vital Signs: Vital Signs - 12hr 08/30/18 08/30/18 08/30/18 11:43 11:48 12:16 Temperature 97.0 F L Pulse Rate 96 H 107 H Respiratory 18 Rate Blood Pressure 152/106 140/104 08/30/18 08/30/18 08/30/18 12:32 12:46 13:02 Temperature Pulse Rate 92 H 90 94 H Respiratory Rate Blood Pressure 135/78 144/87 136/83 08/30/18 08/30/18 08/30/18 13:17 13:31 13:46 Temperature Pulse Rate 95 H 93 H 97 H Respiratory Rate Blood Pressure 148/84 149/88 144/81 08/30/18 08/30/18 14:03 14:18 Temperature Pulse Rate 88 91 H Respiratory Rate Blood Pressure 125/74 152/73 - Exam Cardiovascular: Normal S1, Normal S2 Lungs: Clear to auscultation Vulva: both: normal FHR: category 1 Uterine Contraction Monitor Mode: External Cervical Dilatation: 2 Cervical Effacement Percentage: 50 station: -2 Uterine Contraction Pattern: Irregular Uterine Contraction Intensity: Mild Deep Tendon Reflex Grade: Normal +2 - Labs Labs: Abnormal Labs 08/30/18 08/30/18 12:20 12:29 Creatinine 0.5 L POC Glucose 65 L Lactate Dehydrogenase 226 H Laboratory Results - last 24 hr 08/30/18 08/30/18 08/30/18 12:20 12:20 12:20 WBC 8.2 RBC 4.42 Hgb 13.6 Hct 40.3 MCV 91 MCH 31 MCHC 34 RDW 14.1 Plt Count 257 Creatinine 0.5 L Estimated GFR > 60 POC Glucose Uric Acid 4.2 AST 22 ALT 16 Lactate Dehydrogenase 226 H Urine Color Yellow Urine Turbidity Clear Urine pH 6.0 Ur Specific [place] 1.017 Urine Protein <15 mg/dl Urine Glucose (UA) Neg Urine Ketones Neg Urine Blood Neg Urine Nitrite Neg Urine Bilirubin Neg Urine Urobilinogen < 2.0 Ur Leukocyte Esterase Neg Urine WBC (Auto) 2.0 Urine RBC (Auto) 5.0 U Epithel Cells (Auto) 2.0 Urine Bacteria (Auto) 1+ Urine Mucus Few Blood Type Antibody Screen 08/30/18 08/30/18 12:20 12:29 WBC RBC Hgb Hct MCV MCH MCHC RDW Plt Count Creatinine Estimated GFR POC Glucose 65 L Uric Acid AST ALT Lactate Dehydrogenase Urine Color Urine Turbidity Urine pH Ur Specific [place] Urine Protein Urine Glucose (UA) Urine Ketones Urine Blood Urine Nitrite Urine Bilirubin Urine Urobilinogen Ur Leukocyte Esterase Urine WBC (Auto) Urine RBC (Auto) U Epithel Cells (Auto) Urine Bacteria (Auto) Urine Mucus Blood Type A POSITIVE Antibody Screen Negative - Results US- obstetric: report reviewed
[2018-08-30] MEDS: TYLENOL PO PRN (16:40)
[2018-08-30] MEDS: AMPICILLIN/NS 1 GM/50 ML 1 GM/50 ML BAG IV SCH ×2 (18:26→21:37)
[2018-08-30] MEDS: STADOL IV PRN ×2 (18:31→21:33)
[2018-08-30] MEDS: NORMODYNE PO SCH (21:40)
[2018-08-30] MEDS ORDERED: APRESOLINE IV PRN (23:49)
[2018-08-31] MEDS: TYLENOL PO PRN (01:01)
[2018-08-31] MEDS ORDERED: NARCAN 2 MG/2 ML IV PRN (02:05)
--- NOTE | 2018-08-31 02:05 | Anesthesia Consultation ---
Anesthesia Consult and Med Hx Date of service: 08/31/18 - Airway Anesthetic Teeth Evaluation: Good ROM Head & Neck: Adequate Mental/Hyoid Distance: Adequate Mallampati Class: Class III Intubation Access Assessment: Probably Good - Pulmonary Exam CTA: Yes - Cardiac Exam Cardiac Exam: RRR - Pre-Operative Health Status ASA Pre-Surgery Classification: ASA3 Proposed Anesthetic Plan: Epidural - Pulmonary Hx Asthma: Yes COPD: No Hx Pneumonia: No - Cardiovascular System Hx Hypertension: Yes (LABETELOL 300 BID) - Central Nervous System Hx Seizures: No Hx Psychiatric Problems: No - Endocrine Hx Renal Disease: No Hx End Stage Renal Disease: No Hx Hypothyroidism: No Hx Hyperthyroidism: No - Hematic Hx Anemia: No Hx Sickle Cell Disease: No - Other Systems Hx Alcohol Use: No Hx Obesity: Yes
[2018-08-31] MEDS: LACTATED RINGERS 1,000 ML IV SCH ×2 (02:48→07:22)
[2018-08-31] MEDS ORDERED: fentaNYL-BUPIV 2 MCG/ML-0.125% 200 MCG/100 ML BAG EPIDURAL SCH (03:00)
[2018-08-31] MEDS: AMPICILLIN/NS 1 GM/50 ML 1 GM/50 ML BAG IV SCH ×2 (03:02→07:23)
--- NOTE | 2018-08-31 04:00 | Progress Note ---
Assessment and Plan A: IUP @ 38 Weeks Category I Tracing SROM CHTN with superimposed PIH Morbid Obesity Asthma GBS Positive P: Continue Magnesium Sulfate IV 2G hourly Magnesium Precautions Labetolol 300mg PO BID GBS Prophylaxis Pitocin Augmentation Subjective - Subjective Date of service: 08/31/18 Principal diagnosis: SIUP at 38 weeks with superimposed pre-eclampsia. Interval history: Transfer into care at 18 5/7 weeks, co-roxanne with [facility] due to CHTN, Asthma, and Morbid obesity. Also co-roxanne with Pulmonology due to poorly controlled Asthma. Second trimester complicated by Chlamydia, treated with a Negative SOLOMON. Patient reports: other (Resting well under epidural anesthesia) Objective - Vital Signs Vital Signs: Vital Signs - 12hr 08/30/18 08/30/18 08/30/18 16:01 16:17 16:33 Temperature Pulse Rate 103 H 103 H 99 H Respiratory Rate Blood Pressure 143/89 154/91 134/76 O2 Sat by Pulse Oximetry 08/30/18 08/30/18 08/30/18 16:46 17:03 17:17 Temperature Pulse Rate 99 H 100 H 93 H Respiratory Rate Blood Pressure 136/80 144/80 135/76 O2 Sat by Pulse Oximetry 08/30/18 08/30/18 08/30/18 17:32 17:46 18:02 Temperature Pulse Rate 97 H 93 H 91 H Respiratory Rate Blood Pressure 147/75 136/65 142/76 O2 Sat by Pulse Oximetry 08/30/18 08/30/18 08/30/18 18:18 18:33 18:38 Temperature Pulse Rate 93 H 91 H 88 Respiratory Rate Blood Pressure 141/68 137/68 O2 Sat by Pulse 96 Oximetry 08/30/18 08/30/18 08/30/18 18:43 18:47 18:48 Temperature Pulse Rate 103 H 87 84 Respiratory Rate Blood Pressure 146/84 O2 Sat by Pulse 94 94 Oximetry 08/30/18 08/30/18 08/30/18 18:53 18:58 19:03 Temperature Pulse Rate 96 H 82 87 Respiratory Rate Blood Pressure 144/82 O2 Sat by Pulse 95 95 92 Oximetry 08/30/18 08/30/18 08/30/18 19:05 19:08 19:13 Temperature Pulse Rate 85 77 85 Respiratory Rate Blood Pressure O2 Sat by Pulse 91 94 98 Oximetry 08/30/18 08/30/1819 19:18 19:23 19:28 Temperature Pulse Rate 77 85 83 Respiratory Rate Blood Pressure 142/69 O2 Sat by Pulse 94 94 94 Oximetry 08/30/18 08/30/18 08/30/18 19:30 19:32 19:33 Temperature 97.8 F Pulse Rate 76 87 Respiratory 20 Rate Blood Pressure 141/100 O2 Sat by Pulse 93 Oximetry 08/30/18 08/30/18 08/30/18 19:34 19:38 19:43 Temperature Pulse Rate 78 81 84 Respiratory Rate Blood Pressure 141/88 O2 Sat by Pulse 95 94 Oximetry 08/30/18 08/30/18 08/30/18 19:44 19:47 19:48 Temperature Pulse Rate 77 76 82 Respiratory Rate Blood Pressure 158/97 O2 Sat by Pulse 90 92 Oximetry 08/30/18 08/30/18 08/30/18 19:50 19:53 19:57 Temperature Pulse Rate 84 82 96 H Respiratory Rate Blood Pressure O2 Sat by Pulse 89 92 88 Oximetry 08/30/18 08/30/18 08/30/18 19:58 20:03 20:08 Temperature Pulse Rate 81 80 84 Respiratory Rate Blood Pressure 155/94 O2 Sat by Pulse 91 93 94 Oximetry 08/30/18 08/30/18 08/30/18 20:13 20:16 20:18 Temperature Pulse Rate 81 83 92 H Respiratory Rate Blood Pressure 145/83 O2 Sat by Pulse 95 94 Oximetry 08/30/18 08/30/18 08/30/18 20:23 20:28 20:31 Temperature Pulse Rate 83 82 80 Respiratory Rate Blood Pressure 159/92 O2 Sat by Pulse 94 94 Oximetry 08/30/18 08/30/18 08/30/18 20:33 20:38 20:43 Temperature Pulse Rate 97 H 88 85 Respiratory Rate Blood Pressure O2 Sat by Pulse 94 91 94 Oximetry 08/30/18 08/30/18 08/30/18 20:47 20:48 20:53 Temperature Pulse Rate 82 83 85 Respiratory Rate Blood Pressure 164/83 O2 Sat by Pulse 98 96 Oximetry 08/30/18 08/30/18 08/30/18 20:58 21:02 21:03 Temperature Pulse Rate 80 85 93 H Respiratory Rate Blood Pressure 187/112 O2 Sat by Pulse 98 98 Oximetry 08/30/18 08/30/1819 21:08 21:13 21:18 Temperature Pulse Rate 81 77 79 Respiratory Rate Blood Pressure 145/82 O2 Sat by Pulse 98 97 97 Oximetry 08/30/18 08/30/18 08/30/18 21:21 21:23 21:28 Temperature Pulse Rate 78 79 82 Respiratory Rate Blood Pressure 144/85 O2 Sat by Pulse 99 97 Oximetry 08/30/18 08/30/18 08/30/18 21:33 21:38 21:40 Temperature Pulse Rate 80 78 77 Respiratory Rate Blood Pressure 152/96 152/96 O2 Sat by Pulse 99 99 Oximetry 08/30/18 08/30/18 08/30/18 21:43 21:47 21:48 Temperature Pulse Rate 84 76 78 Respiratory Rate Blood Pressure 141/79 O2 Sat by Pulse 97 92 Oximetry 08/30/18 08/30/18 08/30/18 21:51 21:53 21:57 Temperature Pulse Rate 85 80 87 Respiratory Rate Blood Pressure O2 Sat by Pulse 90 91 91 Oximetry 08/30/18 08/30/18 08/30/18 21:58 22:02 22:03 Temperature Pulse Rate 90 76 75 Respiratory Rate Blood Pressure 138/84 O2 Sat by Pulse 91 91 91 Oximetry 08/30/18 08/30/18 08/30/18 22:08 22:13 22:17 Temperature Pulse Rate 77 81 78 Respiratory Rate Blood Pressure 134/80 O2 Sat by Pulse 91 94 Oximetry 08/30/18 08/30/18 08/30/18 22:18 22:19 22:23 Temperature Pulse Rate 82 78 85 Respiratory Rate Blood Pressure O2 Sat by Pulse 93 91 93 Oximetry 08/30/18 08/30/18 08/30/18 22:28 22:30 22:31 Temperature Pulse Rate 76 83 72 Respiratory Rate Blood Pressure 133/81 O2 Sat by Pulse 94 91 Oximetry 08/30/18 08/30/18 08/30/18 22:33 22:37 22:38 Temperature Pulse Rate 80 94 H 77 Respiratory Rate Blood Pressure O2 Sat by Pulse 92 90 92 Oximetry 08/30/18 08/30/18 08/30/18 22:43 22:44 22:47 Temperature Pulse Rate 89 84 80 Respiratory Rate Blood Pressure 141/79 O2 Sat by Pulse 92 91 Oximetry 08/30/18 08/30/18 08/30/18 22:48 22:49 22:53 Temperature Pulse Rate 73 85 81 Respiratory Rate Blood Pressure O2 Sat by Pulse 93 91 94 Oximetry 08/30/18 08/30/18 08/30/18 22:56 22:58 23:01 Temperature Pulse Rate 79 85 80 Respiratory Rate Blood Pressure 138/74 O2 Sat by Pulse 91 94 Oximetry 08/30/18 08/30/18 08/30/18 23:02 23:03 23:08 Temperature Pulse Rate 80 82 92 H Respiratory Rate Blood Pressure O2 Sat by Pulse 91 92 92 Oximetry 08/30/18 08/30/18 08/30/18 23:12 23:13 23:18 Temperature Pulse Rate 84 97 H 78 Respiratory Rate Blood Pressure 143/76 O2 Sat by Pulse 90 92 91 Oximetry 08/30/18 08/30/18 08/30/18 23:23 23:28 23:32 Temperature Pulse Rate 81 98 H 89 Respiratory Rate Blood Pressure 168/107 O2 Sat by Pulse 93 97 Oximetry 08/30/18 08/30/18 08/30/18 23:33 23:38 23:43 Temperature Pulse Rate 88 109 H 81 Respiratory Rate Blood Pressure O2 Sat by Pulse 96 96 93 Oximetry 08/30/18 08/30/18 08/30/18 23:46 23:47 23:48 Temperature Pulse Rate 93 H 76 87 Respiratory Rate Blood Pressure 143/83 O2 Sat by Pulse 89 92 Oximetry 08/30/18 08/30/18 08/30/18 23:51 23:53 23:58 Temperature Pulse Rate 78 97 H 87 Respiratory Rate Blood Pressure O2 Sat by Pulse 90 93 93 Oximetry 08/31/18 08/31/18 08/31/18 00:01 00:03 00:04 Temperature Pulse Rate 80 85 88 Respiratory Rate Blood Pressure 149/86 154/87 O2 Sat by Pulse 95 Oximetry 08/31/18 08/31/18 08/31/18 00:08 00:13 00:16 Temperature Pulse Rate 81 86 76 Respiratory Rate Blood Pressure 144/85 O2 Sat by Pulse 100 98 Oximetry 08/31/18 08/31/18 08/31/18 00:18 00:23 00:28 Temperature Pulse Rate 78 73 74 Respiratory Rate Blood Pressure O2 Sat by Pulse 99 99 99 Oximetry 08/31/18 08/31/18 08/31/18 00:32 00:33 00:38 Temperature Pulse Rate 82 73 96 H Respiratory Rate Blood Pressure 142/84 O2 Sat by Pulse 100 96 Oximetry 08/31/18 08/31/18 08/31/18 00:43 00:47 00:48 Temperature Pulse Rate 92 H 73 71 Respiratory Rate Blood Pressure 132/83 O2 Sat by Pulse 96 98 Oximetry 08/31/18 08/31/18 08/31/18 00:53 00:58 01:02 Temperature Pulse Rate 75 89 78 Respiratory Rate Blood Pressure 125/71 O2 Sat by Pulse 99 91 Oximetry 08/31/18 08/31/18 08/31/18 01:03 01:08 01:13 Temperature Pulse Rate 89 83 82 Respiratory Rate Blood Pressure O2 Sat by Pulse 97 97 99 Oximetry 08/31/18 08/31/18 08/31/18 01:18 01:23 01:28 Temperature Pulse Rate 83 77 89 Respiratory Rate Blood Pressure 138/84 O2 Sat by Pulse 97 100 97 Oximetry 08/31/18 08/31/18 08/31/18 01:29 01:33 01:38 Temperature Pulse Rate 90 98 H 96 H Respiratory Rate Blood Pressure 225/142 O2 Sat by Pulse 85 97 96 Oximetry 08/31/18 08/31/18 08/31/18 01:43 01:46 01:51 Temperature Pulse Rate 79 88 88 Respiratory Rate Blood Pressure 133/66 O2 Sat by Pulse 95 91 96 Oximetry 08/31/18 08/31/18 08/31/18 01:55 01:56 01:59 Temperature Pulse Rate 91 H 96 H 113 H Respiratory Rate Blood Pressure 132/68 128/66 O2 Sat by Pulse 96 Oximetry 08/31/18 08/31/18 08/31/18 02:08 02:10 02:13 Temperature Pulse Rate 88 87 90 Respiratory Rate Blood Pressure 97/49 100/52 109/58 O2 Sat by Pulse Oximetry 08/31/18 08/31/18 08/31/18 02:15 02:16 02:19 Temperature Pulse Rate 73 78 100 H Respiratory Rate Blood Pressure 103/56 104/56 O2 Sat by Pulse 94 88 Oximetry 08/31/18 08/31/18 08/31/18 02:20 02:22 02:25 Temperature Pulse Rate 101 H 93 H 83 Respiratory Rate Blood Pressure 106/57 92/55 O2 Sat by Pulse 94 98 Oximetry 08/31/18 08/31/18 08/31/18 02:28 02:30 02:31 Temperature Pulse Rate 86 86 84 Respiratory Rate Blood Pressure 96/52 97/55 O2 Sat by Pulse 98 Oximetry 08/31/18 08/31/18 08/31/18 02:34 02:35 02:37 Temperature Pulse Rate 85 85 88 Respiratory Rate Blood Pressure 99/54 109/57 O2 Sat by Pulse 96 Oximetry 08/31/18 08/31/18 08/31/18 02:40 02:41 02:43 Temperature Pulse Rate 83 82 84 Respiratory Rate Blood Pressure 100/59 104/59 O2 Sat by Pulse 97 80 L Oximetry 08/31/18 08/31/18 08/31/18 02:45 02:46 02:50 Temperature Pulse Rate 82 85 82 Respiratory Rate Blood Pressure 103/55 O2 Sat by Pulse 98 98 Oximetry 08/31/18 08/31/18 08/31/18 02:55 03:00 03:04 Temperature Pulse Rate 88 98 H 88 Respiratory Rate Blood Pressure 111/58 O2 Sat by Pulse 98 96 Oximetry 08/31/18 08/31/18 08/31/18 03:05 03:10 03:15 Temperature Pulse Rate 89 87 84 Respiratory Rate Blood Pressure O2 Sat by Pulse 99 98 98 Oximetry 08/31/18 08/31/18 08/31/18 03:17 03:20 03:25 Temperature Pulse Rate 82 87 90 Respiratory Rate Blood Pressure 100/53 O2 Sat by Pulse 97 93 Oximetry 08/31/18 08/31/18 08/31/18 03:26 03:30 03:35 Temperature Pulse Rate 86 89 82 Respiratory Rate Blood Pressure 105/59 O2 Sat by Pulse 91 95 97 Oximetry 08/31/18 08/31/18 08/31/18 03:41 03:46 03:51 Temperature Pulse Rate 76 80 87 Respiratory Rate Blood Pressure O2 Sat by Pulse 96 97 99 Oximetry - Exam Breasts: normal Cardiovascular: Regular rate Lungs: Clear to auscultation, Normal air movement Abdomen: Present: normal appearance, soft, normal bowel sounds Uterus: Present: normal, firm, fundal height above umbilicus FHR: category 1 Uterine Contraction Monitor Mode: External Cervical Dilatation: 4 (SROM of a moderate amount of clear fluid at 0350) Cervical Effacement Percentage: 70 station: -3 Uterine Contraction Pattern: Irregular Uterine Tone Measurement Phase: Resting Uterine Contraction Intensity: Moderate Extremities: normal - Labs Labs: Abnormal Labs 08/30/18 08/30/18 12:20 12:29 Creatinine 0.5 L POC Glucose 65 L Lactate Dehydrogenase 226 H Laboratory Results - last 24 hr 08/30/18 08/30/18 08/30/18 12:20 12:20 12:20 WBC 8.2 RBC 4.42 Hgb 13.6 Hct 40.3 MCV 91 MCH 31 MCHC 34 RDW 14.1 Plt Count 257 Creatinine 0.5 L Estimated GFR > 60 POC Glucose Uric Acid 4.2 AST 22 ALT 16 Lactate Dehydrogenase 226 H Urine Color Yellow Urine Turbidity Clear Urine pH 6.0 Ur Specific [place] 1.017 Urine Protein <15 mg/dl Urine Glucose (UA) Neg Urine Ketones Neg Urine Blood Neg Urine Nitrite Neg Urine Bilirubin Neg Urine Urobilinogen < 2.0 Ur Leukocyte Esterase Neg Urine WBC (Auto) 2.0 Urine RBC (Auto) 5.0 U Epithel Cells (Auto) 2.0 Urine Bacteria (Auto) 1+ Urine Mucus Few Blood Type Antibody Screen 08/30/18 08/30/18 12:20 12:29 WBC RBC Hgb Hct MCV MCH MCHC RDW Plt Count Creatinine Estimated GFR POC Glucose 65 L Uric Acid AST ALT Lactate Dehydrogenase Urine Color Urine Turbidity Urine pH Ur Specific [place] Urine Protein Urine Glucose (UA) Urine Ketones Urine Blood Urine Nitrite Urine Bilirubin Urine Urobilinogen Ur Leukocyte Esterase Urine WBC (Auto) Urine RBC (Auto) U Epithel Cells (Auto) Urine Bacteria (Auto) Urine Mucus Blood Type A POSITIVE Antibody Screen Negative
[2018-08-31] MEDS: MAGNESIUM SULFATE 40GM/1000ML 40 GM/1,000 ML BAG IV SCH (07:29)
--- NOTE | 2018-08-31 09:05 | Progress Note ---
Assessment and Plan - Patient Problems (1) 38 weeks gestation of Current Visit: Yes Status: Acute (2) Pre-eclampsia superimposed on chronic hypertension Current Visit: Yes Status: Acute Plan to address problem: Toxemia labs were normal. Magnesium sulfate at 2 gm/hr. Monitor Mg levels, urine output, DTRs. Mg levels just ordered STAT (no levels was done). Monitor BP. Labetolol for BP control. Continous monitoring. Continue pitocin. Anticipate . (3) Morbid obesity with BMI of 45.0-49.9, adult Current Visit: Yes Status: Acute (4) GBS bacteriuria Current Visit: Yes Status: Acute Plan to address problem: IV antibiotics in labor. Subjective - Subjective Date of service: 08/31/18 Principal diagnosis: SIUP at 38 weeks with superimposed pre-eclampsia. Interval history: Patient is a 33 year old , LMP 12/07/17, EDC 09/13/18 at 38 weeks and 1 day gestation who was admitted yesterday for elevated BP in the 150's/100's. She has a history of CHTN and morbid obesity and has been co-managed with [facility]. She has been on labetolol 300 mg BID. On admission, she denied any headache, visual changes or RUQ pain, contractions, fluid leakage or bleeding. She reported good movement. Her BP was in the 140-150's/80's. tracing is CAT1. Cervix: 2 cm/50%/-2. Her early GCT was normal, she was sent for GCT after 24 weeks but she did not do the test. Random glucose was 65. She has GBS bacturiria. She was started on magnesium and labetolol was continued. Pitocin induction was started. BP has been stable overnight. This AM, she had SROM with clear fluids. tracing is CAT1 [place]: Q2-4 mins. Last VE done by fish fryer. Patient reports: other (Resting well under epidural anesthesia) Objective - Vital Signs Vital Signs: Vital Signs - 12hr 08/30/18 08/30/18 08/30/18 21:02 21:03 21:08 Pulse Rate 85 93 H 81 Blood Pressure 187/112 O2 Sat by Pulse 98 98 Oximetry 08/30/18 08/30/18 08/30/18 21:13 21:18 21:21 Pulse Rate 77 79 78 Blood Pressure 145/82 144/85 O2 Sat by Pulse 97 97 Oximetry 08/30/18 08/30/18 08/30/18 21:23 21:28 21:33 Pulse Rate 79 82 80 Blood Pressure 152/96 O2 Sat by Pulse 99 97 99 Oximetry 08/30/18 08/30/18 08/30/18 21:38 21:40 21:43 Pulse Rate 78 77 84 Blood Pressure 152/96 O2 Sat by Pulse 99 97 Oximetry 08/30/18 08/30/18 08/30/18 21:47 21:48 21:51 Pulse Rate 76 78 85 Blood Pressure 141/79 O2 Sat by Pulse 92 90 Oximetry 08/30/18 08/30/18 08/30/18 21:53 21:57 21:58 Pulse Rate 80 87 90 Blood Pressure O2 Sat by Pulse 91 91 91 Oximetry 08/30/18 08/30/18 08/30/18 22:02 22:03 22:08 Pulse Rate 76 75 77 Blood Pressure 138/84 O2 Sat by Pulse 91 91 91 Oximetry 08/30/18 08/30/18 08/30/18 22:13 22:17 22:18 Pulse Rate 81 78 82 Blood Pressure 134/80 O2 Sat by Pulse 94 93 Oximetry 08/30/18 08/30/18 08/30/18 22:19 22:23 22:28 Pulse Rate 78 85 76 Blood Pressure O2 Sat by Pulse 91 93 94 Oximetry 08/30/18 08/30/18 08/30/18 22:30 22:31 22:33 Pulse Rate 83 72 80 Blood Pressure 133/81 O2 Sat by Pulse 91 92 Oximetry 08/30/18 08/30/18 08/30/18 22:37 22:38 22:43 Pulse Rate 94 H 77 89 Blood Pressure O2 Sat by Pulse 90 92 92 Oximetry 08/30/18 08/30/18 08/30/18 22:44 22:47 22:48 Pulse Rate 84 80 73 Blood Pressure 141/79 O2 Sat by Pulse 91 93 Oximetry 08/30/18 08/30/18 08/30/18 22:49 22:53 22:56 Pulse Rate 85 81 79 Blood Pressure O2 Sat by Pulse 91 94 91 Oximetry 08/30/18 08/30/18 08/30/18 22:58 23:01 23:02 Pulse Rate 85 80 80 Blood Pressure 138/74 O2 Sat by Pulse 94 91 Oximetry 08/30/18 08/30/18 08/30/18 23:03 23:08 23:12 Pulse Rate 82 92 H 84 Blood Pressure O2 Sat by Pulse 92 92 90 Oximetry 08/30/18 08/30/18 08/30/18 23:13 23:18 23:23 Pulse Rate 97 H 78 81 Blood Pressure 143/76 O2 Sat by Pulse 92 91 93 Oximetry 08/30/18 08/30/18 08/30/18 23:28 23:32 23:33 Pulse Rate 98 H 89 88 Blood Pressure 168/107 O2 Sat by Pulse 97 96 Oximetry 08/30/18 08/30/18 08/30/18 23:38 23:43 23:46 Pulse Rate 109 H 81 93 H Blood Pressure O2 Sat by Pulse 96 93 89 Oximetry 08/30/18 08/30/18 08/30/18 23:47 23:48 23:51 Pulse Rate 76 87 78 Blood Pressure 143/83 O2 Sat by Pulse 92 90 Oximetry 08/30/18 08/30/18 08/31/18 23:53 23:58 00:01 Pulse Rate 97 H 87 80 Blood Pressure 149/86 O2 Sat by Pulse 93 93 Oximetry 08/31/18 08/31/18 08/31/18 00:03 00:04 00:08 Pulse Rate 85 88 81 Blood Pressure 154/87 O2 Sat by Pulse 95 100 Oximetry 08/31/18 08/31/18 08/31/18 00:13 00:16 00:18 Pulse Rate 86 76 78 Blood Pressure 144/85 O2 Sat by Pulse 98 99 Oximetry 08/31/18 08/31/18 08/31/18 00:23 00:28 00:32 Pulse Rate 73 74 82 Blood Pressure 142/84 O2 Sat by Pulse 99 99 Oximetry 08/31/18 08/31/18 08/31/18 00:33 00:38 00:43 Pulse Rate 73 96 H 92 H Blood Pressure O2 Sat by Pulse 100 96 96 Oximetry 08/31/18 08/31/18 08/31/18 00:47 00:48 00:53 Pulse Rate 73 71 75 Blood Pressure 132/83 O2 Sat by Pulse 98 99 Oximetry 01/10/19 01/10/19 01/10/19 00:58 01:02 01:03 Pulse Rate 89 78 89 Blood Pressure 125/71 O2 Sat by Pulse 91 97 Oximetry 08/31/18 08/31/18 08/31/18 01:08 01:13 01:18 Pulse Rate 83 82 83 Blood Pressure 138/84 O2 Sat by Pulse 97 99 97 Oximetry 08/31/18 08/31/18 08/31/18 01:23 01:28 01:29 Pulse Rate 77 89 90 Blood Pressure O2 Sat by Pulse 100 97 85 Oximetry 08/31/18 08/31/18 08/31/18 01:33 01:38 01:43 Pulse Rate 98 H 96 H 79 Blood Pressure 225/142 O2 Sat by Pulse 97 96 95 Oximetry 08/31/18 08/31/18 08/31/18 01:46 01:51 01:55 Pulse Rate 88 88 91 H Blood Pressure 133/66 132/68 O2 Sat by Pulse 91 96 Oximetry 08/31/18 08/31/18 08/31/18 01:56 01:59 02:08 Pulse Rate 96 H 113 H 88 Blood Pressure 128/66 97/49 O2 Sat by Pulse 96 Oximetry 08/31/18 08/31/18 08/31/18 02:10 02:13 02:15 Pulse Rate 87 90 73 Blood Pressure 100/52 109/58 O2 Sat by Pulse 94 Oximetry 08/31/18 08/31/18 08/31/18 02:16 02:19 02:20 Pulse Rate 78 100 H 101 H Blood Pressure 103/56 104/56 O2 Sat by Pulse 88 94 Oximetry 08/31/18 08/31/18 08/31/18 02:22 02:25 02:28 Pulse Rate 93 H 83 86 Blood Pressure 106/57 92/55 96/52 O2 Sat by Pulse 98 Oximetry 08/31/18 08/31/18 08/31/18 02:30 02:31 02:34 Pulse Rate 86 84 85 Blood Pressure 97/55 99/54 O2 Sat by Pulse 98 Oximetry 08/31/18 08/31/18 08/31/18 02:35 02:37 02:40 Pulse Rate 85 88 83 Blood Pressure 109/57 100/59 O2 Sat by Pulse 96 97 Oximetry 08/31/18 08/31/18 08/31/18 02:41 02:43 02:45 Pulse Rate 82 84 82 Blood Pressure 104/59 O2 Sat by Pulse 80 L 98 Oximetry 08/31/18 08/31/18 08/31/18 02:46 02:50 02:55 Pulse Rate 85 82 88 Blood Pressure 103/55 O2 Sat by Pulse 98 98 Oximetry 08/31/18 08/31/18 08/31/18 03:00 03:04 03:05 Pulse Rate 98 H 88 89 Blood Pressure 111/58 O2 Sat by Pulse 96 99 Oximetry 08/31/18 08/31/18 08/31/18 03:10 03:15 03:17 Pulse Rate 87 84 82 Blood Pressure 100/53 O2 Sat by Pulse 98 98 Oximetry 08/31/18 08/31/18 08/31/18 03:20 03:25 03:26 Pulse Rate 87 90 86 Blood Pressure O2 Sat by Pulse 97 93 91 Oximetry 08/31/18 08/31/18 08/31/18 03:30 03:35 03:41 Pulse Rate 89 82 76 Blood Pressure 105/59 O2 Sat by Pulse 95 97 96 Oximetry 08/31/18 08/31/18 08/31/18 03:46 03:51 03:56 Pulse Rate 80 87 80 Blood Pressure O2 Sat by Pulse 97 99 97 Oximetry 08/31/18 08/31/18 08/31/18 04:01 04:03 04:06 Pulse Rate 77 74 76 Blood Pressure 92/50 O2 Sat by Pulse 99 98 Oximetry 08/31/18 08/31/18 08/31/18 04:11 04:16 04:18 Pulse Rate 76 93 H 83 Blood Pressure 107/57 O2 Sat by Pulse 99 97 Oximetry 08/31/18 08/31/18 08/31/18 04:21 04:26 04:31 Pulse Rate 80 77 87 Blood Pressure O2 Sat by Pulse 98 98 98 Oximetry 08/31/18 08/31/18 08/31/18 04:34 04:36 04:41 Pulse Rate 81 78 78 Blood Pressure 100/55 O2 Sat by Pulse 99 99 Oximetry 08/31/18 08/31/18 08/31/18 04:46 04:48 04:51 Pulse Rate 77 76 76 Blood Pressure 100/56 O2 Sat by Pulse 99 97 Oximetry 08/31/18 08/31/18 08/31/18 04:56 05:01 05:02 Pulse Rate 78 74 78 Blood Pressure 98/58 O2 Sat by Pulse 98 98 Oximetry 08/31/18 08/31/18 08/31/18 05:06 05:11 05:16 Pulse Rate 80 73 78 Blood Pressure O2 Sat by Pulse 98 98 98 Oximetry 08/31/18 08/31/18 08/31/18 05:17 05:21 05:26 Pulse Rate 81 79 82 Blood Pressure 113/57 O2 Sat by Pulse 98 98 Oximetry 08/31/18 08/31/18 08/31/18 05:31 05:32 05:36 Pulse Rate 91 H 87 84 Blood Pressure 108/53 O2 Sat by Pulse 97 98 Oximetry 08/31/18 08/31/18 08/31/18 05:41 05:46 05:47 Pulse Rate 85 86 86 Blood Pressure 108/59 O2 Sat by Pulse 98 98 Oximetry 08/31/18 08/31/18 08/31/18 05:51 05:56 06:01 Pulse Rate 84 84 87 Blood Pressure O2 Sat by Pulse 98 95 98 Oximetry 08/31/18 08/31/18 08/31/18 06:02 06:06 06:11 Pulse Rate 103 H 103 H 97 H Blood Pressure 98/58 O2 Sat by Pulse 96 97 Oximetry 08/31/18 08/31/18 08/31/18 06:16 06:17 06:21 Pulse Rate 102 H 93 H 91 H Blood Pressure 107/64 O2 Sat by Pulse 96 97 Oximetry 08/31/18 08/31/18 08/31/18 06:26 06:31 06:32 Pulse Rate 85 86 95 H Blood Pressure 110/66 O2 Sat by Pulse 99 99 Oximetry 08/31/18 08/31/18 08/31/18 06:36 06:41 06:46 Pulse Rate 94 H 92 H 92 H Blood Pressure O2 Sat by Pulse 97 98 98 Oximetry 08/31/18 08/31/18 08/31/18 06:48 06:51 06:56 Pulse Rate 92 H 92 H 97 H Blood Pressure 97/56 O2 Sat by Pulse 97 97 Oximetry 08/31/18 08/31/18 08/31/18 07:01 07:04 07:06 Pulse Rate 97 H 98 H 97 H Blood Pressure 101/56 O2 Sat by Pulse 97 91 97 Oximetry 08/31/18 08/31/18 08/31/18 07:11 07:16 07:17 Pulse Rate 103 H 98 H 93 H Blood Pressure 106/54 O2 Sat by Pulse 97 97 Oximetry 08/31/18 08/31/18 08/31/18 07:21 07:26 07:31 Pulse Rate 95 H 101 H 104 H Blood Pressure O2 Sat by Pulse 97 98 95 Oximetry 08/31/18 08/31/18 08/31/18 07:32 07:36 07:41 Pulse Rate 99 H 96 H 92 H Blood Pressure 104/51 O2 Sat by Pulse 95 97 Oximetry 08/31/18 08/31/18 08/31/18 07:46 07:47 07:51 Pulse Rate 91 H 91 H 91 H Blood Pressure 118/59 O2 Sat by Pulse 96 95 Oximetry 08/31/18 08/31/18 08/31/18 07:56 08:01 08:03 Pulse Rate 92 H 96 H 96 H Blood Pressure 118/65 O2 Sat by Pulse 96 95 Oximetry 08/31/18 08/31/18 08/31/18 08:06 08:11 08:16 Pulse Rate 96 H 94 H 92 H Blood Pressure O2 Sat by Pulse 97 98 94 Oximetry 08/31/18 08/31/18 08/31/18 08:18 08:21 08:26 Pulse Rate 96 H 85 97 H Blood Pressure 117/56 O2 Sat by Pulse 90 94 95 Oximetry 08/31/18 08/31/18 08/31/18 08:31 08:32 08:35 Pulse Rate 92 H 97 H 91 H Blood Pressure 113/57 O2 Sat by Pulse 94 89 Oximetry 08/31/18 08/31/18 08/31/18 08:36 08:37 08:41 Pulse Rate 92 H 90 93 H Blood Pressure O2 Sat by Pulse 93 91 94 Oximetry 08/31/18 08/31/18 08/31/18 08:43 08:46 08:48 Pulse Rate 99 H 90 95 H Blood Pressure 117/58 O2 Sat by Pulse 89 94 90 Oximetry 08/31/18 08/31/18 08:51 08:56 Pulse Rate 95 H 90 Blood Pressure O2 Sat by Pulse 93 95 Oximetry - Exam Cardiovascular: Normal S1, Normal S2 Lungs: Clear to auscultation Vulva: both: normal FHR: category 1 Uterine Contraction Monitor Mode: External Uterine Contraction Pattern: Irregular Uterine Contraction Intensity: Strong/Firm Deep Tendon Reflex Grade: Normal +2 - Labs Labs: Abnormal Labs 08/30/18 08/30/18 12:20 12:29 Creatinine 0.5 L POC Glucose 65 L Lactate Dehydrogenase 226 H Laboratory Results - last 24 hr 08/30/18 08/30/18 08/30/18 12:20 12:20 12:20 WBC 8.2 RBC 4.42 Hgb 13.6 Hct 40.3 MCV 91 MCH 31 MCHC 34 RDW 14.1 Plt Count 257 Creatinine 0.5 L Estimated GFR > 60 POC Glucose Uric Acid 4.2 AST 22 ALT 16 Lactate Dehydrogenase 226 H Urine Color Yellow Urine Turbidity Clear Urine pH 6.0 Ur Specific [place] 1.017 Urine Protein <15 mg/dl Urine Glucose (UA) Neg Urine Ketones Neg Urine Blood Neg Urine Nitrite Neg Urine Bilirubin Neg Urine Urobilinogen < 2.0 Ur Leukocyte Esterase Neg Urine WBC (Auto) 2.0 Urine RBC (Auto) 5.0 U Epithel Cells (Auto) 2.0 Urine Bacteria (Auto) 1+ Urine Mucus Few Blood Type Antibody Screen 08/30/18 08/30/18 12:20 12:29 WBC RBC Hgb Hct MCV MCH MCHC RDW Plt Count Creatinine Estimated GFR POC Glucose 65 L Uric Acid AST ALT Lactate Dehydrogenase Urine Color Urine Turbidity Urine pH Ur Specific [place] Urine Protein Urine Glucose (UA) Urine Ketones Urine Blood Urine Nitrite Urine Bilirubin Urine Urobilinogen Ur Leukocyte Esterase Urine WBC (Auto) Urine RBC (Auto) U Epithel Cells (Auto) Urine Bacteria (Auto) Urine Mucus Blood Type A POSITIVE Antibody Screen Negative - Results US- obstetric: report reviewed
[2018-08-31] MEDS ORDERED: BENADRYL IV PRN (11:20)
[2018-08-31] MEDS ORDERED: ZOFRAN IV PRN (11:21)
[2018-08-31] MEDS ORDERED: LANSINOH TP PRN (11:21)
[2018-08-31] MEDS ORDERED: TYLENOL PO PRN (11:21)
[2018-08-31] MEDS ORDERED: MILK OF MAGNESIA PO PRN (11:21)
[2018-08-31] MEDS ORDERED: DULCOLAX PR PRN (11:21)
[2018-08-31] MEDS ORDERED: PHENERGAN PR PRN (11:21)
[2018-08-31] MEDS ORDERED: TUCKS PAD TP PRN (11:21)
--- NOTE | 2018-08-31 11:31 | Procedure Note ---
OB Delivery Note - Delivery Date of Delivery: 08/31/18 (10:53) Surgeon: SUSAN DARBY ([facility]) Estimated blood loss: 200cc - Vaginal Delivery presentation: vertex Delivery position: OA (Rotated OP to YOUSUF at delivery of the head) Delivery induction: AROM Delivery monitor: external FHT, external uterine Route of delivery: (10:53) Delivery placenta: spontaneous (10:58, To pathology d/t CHTN w/ superimposed preeclampsia, Morbid obesity ) Delivery cord: 3 umbilical vessels Episiotomy: none Delivery laceration: none Anesthesia: epidural Delivery comments: With good pushing efforts head rotated from straight OP to YOUSUF while crowing. viable female infant over intact perineum at 10:53. Infant dried, bulb suctioned then placed on [id number] on maternal abdomen. Strong lusty cry. Delayed cord clamping. Cord cut by FOB with my guidance at 10:58. Spontaneous moeller delivery of intact placenta with 3VC at 10:58 (to pathology d/t CHTN, Preeclampsia, Maternal obesity). Fundus massaged firm. Perineum inspected with no tears or lacerations. FF@u-1. Small lochia. no clots. Tabares catheter reinserted with clear light yellow urine noted in tubing. EBL 200. GBS positive (Tx'd x4). Pt to remain in L&D for MgS04 2 grams/hr x 24hrs. After insertion of Tabares, pt's mother informed nursing staff that pt has a history of anaphylaxis with Iodine and shellfish ("in the unit several times"). Immediately Iodine used to insert tabares was washed off with lg amt warm soapy water. Benadryl 25mg IV and Solu-Medrol 125mg IV ordered STAT. Monitored pt x 30 min with no effects or c/o SOB. Vitals and 02 saturation remained stable. - A at 1 minute: 8 at 5 minutes: 9 Gender: Female (3082 grams, 6lbs 13oz, 20")
[2018-08-31] MEDS: NORMODYNE PO SCH ×2 (11:33→21:50)
[2018-08-31] MEDS ORDERED: SODIUM CHLORIDE FLUSH SYRINGE 10 ML IV NR (12:00)
[2018-08-31] MEDS ORDERED: SOLU-Medrol IV ONE (12:00)
[2018-08-31] MEDS ORDERED: ERYTHROMYCIN OPHTH OINT OU ONE (12:30)
[2018-08-31] MEDS ORDERED: VITAMIN K *NICU IM ONE (12:30)
[2018-08-31] MEDS: IBUPROFEN PO SCH (12:58)
[2018-08-31] MEDS: NORCO 5/325 PO PRN (21:50)
[2018-08-31 23:15] LABS: Hematocrit 41.4 % (30.3-42.9); Hemoglobin 13.3 gm/dl (10.1-14.3)
[2018-09-01] MEDS: LACTATED RINGERS 1,000 ML IV SCH (02:57)
[2018-09-01] MEDS: MAGNESIUM SULFATE 40GM/1000ML 40 GM/1,000 ML BAG IV SCH (06:32)
[2018-09-01] MEDS: NORMODYNE PO SCH ×2 (10:00→22:12)
--- NOTE | 2018-09-01 10:06 | Progress Note ---
Assessment and Plan - Patient Problems (1) Status post normal vaginal delivery Current Visit: Yes Status: Acute Plan to address problem: PPD 1 - stable Continue routine PP orders Anticipate discharge in 24-48 hours (2) Pre-eclampsia superimposed on chronic hypertension Current Visit: Yes Status: Acute Plan to address problem: Asymptomatic BPs stable Continue magnesium sulfate therapy and Discontinue MgSO4 after 24 hours, tabares catheter and IVF. Ambulation encouraged, as tolerated Continue Labetalol 300mg PO BID Subjective - Subjective Date of service: 09/01/18 Principal diagnosis: PPD #1; s/p ; CHTN w/superimposed pre-eclampsia. Patient reports: appetite normal, pain well controlled, flatus, ambulating normally, other (tabares catheter in place. Denies headache, visual disturbances or RUQ pain.), no bowel movement : doing well, other (breast and bottle feeding) Objective - Vital Signs Latest vital signs: Vital Signs Temp Pulse Resp BP Pulse Ox 09/01/18 09:58 91 H 98 09/01/18 09:53 88 98 09/01/18 09:48 88 98 09/01/18 09:43 88 140/72 99 09/01/18 09:38 91 H 99 09/01/18 09:33 94 H 98 09/01/18 09:28 98 H 100 09/01/18 09:23 89 100 09/01/18 09:18 92 H 99 09/01/18 09:07 91 H 100 09/01/18 09:02 81 100 09/01/18 08:57 80 100 09/01/18 08:52 89 100 09/01/18 08:47 89 100 09/01/18 08:46 83 140/76 09/01/18 08:42 83 100 09/01/18 08:37 93 H 100 09/01/18 08:32 83 100 09/01/18 08:27 83 100 09/01/18 08:14 71 98 09/01/18 08:09 72 98 09/01/18 08:04 81 99 09/01/18 07:59 75 99 09/01/18 07:54 75 97 09/01/18 07:49 72 98 09/01/18 07:44 77 98 09/01/18 07:43 74 146/95 09/01/18 07:39 71 96 09/01/18 07:34 75 97 09/01/18 07:29 74 97 09/01/18 07:24 75 98 09/01/18 07:19 74 97 09/01/18 07:14 67 98 09/01/18 07:09 84 97 09/01/18 07:04 84 97 09/01/18 06:59 81 97 09/01/18 06:54 71 97 09/01/18 06:49 79 97 09/01/18 06:44 84 97 09/01/18 06:43 73 137/92 09/01/18 06:39 85 97 09/01/18 06:34 87 97 09/01/18 06:29 83 95 09/01/18 06:24 83 97 09/01/18 06:19 85 94 09/01/18 06:16 82 79 L 09/01/18 06:14 75 95 09/01/18 06:09 95 H 95 09/01/18 06:04 76 99 09/01/18 05:59 76 99 09/01/18 05:54 76 99 09/01/18 05:49 75 98 09/01/18 05:44 79 99 09/01/18 05:43 76 130/62 09/01/18 05:39 70 100 09/01/18 05:34 70 98 09/01/18 05:31 77 90 09/01/18 05:29 70 97 09/01/18 05:24 78 97 09/01/18 05:19 78 97 09/01/18 05:14 77 98 09/01/18 05:09 73 97 09/01/18 05:04 74 98 09/01/18 04:59 89 97 09/01/18 04:54 73 95 09/01/18 04:49 77 95 09/01/18 04:44 77 94 09/01/18 04:43 75 135/63 87 09/01/18 04:39 78 94 09/01/18 04:34 73 97 09/01/18 04:29 77 96 09/01/18 04:24 76 96 09/01/18 04:19 81 95 09/01/18 04:14 78 96 09/01/18 04:09 74 97 09/01/18 04:04 88 97 09/01/18 03:59 81 97 09/01/18 03:54 81 97 09/01/18 03:49 85 98 09/01/18 03:44 90 97 09/01/18 03:43 84 151/70 09/01/18 03:39 87 98 09/01/18 03:34 91 H 97 09/01/18 03:29 81 97 09/01/18 03:24 86 98 09/01/18 03:19 84 98 09/01/18 03:14 81 98 09/01/18 03:09 81 97 09/01/18 03:04 80 97 09/01/18 02:59 84 99 09/01/18 02:54 83 97 09/01/18 02:49 79 98 09/01/18 02:44 72 98 09/01/18 02:43 85 130/73 09/01/18 02:40 98.3 F 18 09/01/18 02:39 84 98 09/01/18 02:34 85 98 09/01/18 02:20 90 87 09/01/18 02:16 84 98 09/01/18 02:11 74 97 09/01/18 02:06 79 98 09/01/18 02:01 80 98 09/01/18 01:56 80 97 09/01/18 01:51 79 98 09/01/18 01:46 76 97 09/01/18 01:43 80 127/71 89 09/01/18 01:41 80 97 09/01/18 01:36 80 99 09/01/18 01:31 81 97 09/01/18 01:26 83 99 09/01/18 01:21 83 98 09/01/18 01:16 84 99 09/01/18 01:11 75 98 09/01/18 01:06 83 98 09/01/18 01:01 82 98 09/01/18 00:56 82 98 09/01/18 00:51 84 97 09/01/18 00:46 78 98 09/01/18 00:43 81 127/74 09/01/18 00:41 85 98 09/01/18 00:36 85 97 09/01/18 00:31 85 97 09/01/18 00:26 84 98 09/01/18 00:21 83 98 09/01/18 00:16 84 98 09/01/18 00:11 86 97 09/01/18 00:06 78 98 01/11/19 00:01 83 97 08/31/18 23:56 86 97 08/31/18 23:51 85 98 08/31/18 23:46 91 H 96 08/31/18 23:43 83 120/60 08/31/18 23:41 89 97 08/31/18 23:36 86 96 08/31/18 23:35 77 91 08/31/18 23:31 91 H 95 08/31/18 23:26 90 95 08/31/18 23:21 87 95 08/31/18 23:16 92 H 96 08/31/18 23:11 89 96 08/31/18 23:09 52 L 84 08/31/18 23:06 90 98 08/31/18 23:01 91 H 99 08/31/18 22:56 94 H 97 08/31/18 22:51 94 H 97 08/31/18 22:46 89 97 08/31/18 22:43 93 H 133/75 08/31/18 22:41 103 H 96 08/31/18 22:36 99 H 97 08/31/18 22:31 92 H 96 08/31/18 22:26 113 H 94 08/31/18 22:10 98.6 F 20 08/31/18 21:56 92 H 98 08/31/18 21:51 100 H 95 08/31/18 21:46 92 H 96 08/31/18 21:43 93 H 133/83 08/31/18 21:41 97 H 94 08/31/18 21:36 95 H 96 08/31/18 21:31 91 H 96 08/31/18 21:26 90 96 08/31/18 21:21 83 95 08/31/18 21:16 93 H 95 08/31/18 21:11 102 H 95 08/31/18 21:06 97 H 95 08/31/18 21:01 90 95 08/31/18 20:56 98 H 96 08/31/18 20:51 91 H 96 08/31/18 20:46 92 H 95 08/31/18 20:43 89 128/70 08/31/18 20:41 91 H 96 08/31/18 20:36 91 H 96 08/31/18 20:31 108 H 95 08/31/18 20:26 95 H 96 08/31/18 20:21 104 H 96 08/31/18 20:16 93 H 96 08/31/18 20:11 102 H 96 08/31/18 20:06 100 H 96 08/31/18 20:01 96 H 96 08/31/18 19:56 98 H 96 08/31/18 19:51 100 H 95 08/31/18 19:49 92 H 87 08/31/18 19:46 97 H 97 08/31/18 19:43 98.0 F 108 H 18 139/79 85 08/31/18 19:41 100 H 95 08/31/18 19:36 93 H 96 08/31/18 19:31 96 H 96 08/31/18 19:26 96 H 95 08/31/18 19:21 85 96 08/31/18 19:16 98 H 96 08/31/18 19:11 102 H 95 08/31/18 19:06 98 H 95 08/31/18 19:01 101 H 97 08/31/18 18:56 97 H 95 08/31/18 18:51 101 H 97 08/31/18 18:46 94 H 96 08/31/18 18:43 102 H 144/80 85 08/31/18 18:41 99 H 96 08/31/18 18:36 101 H 97 08/31/18 18:31 104 H 96 08/31/18 18:28 98.1 F 16 08/31/18 18:26 98 H 96 08/31/18 18:21 104 H 96 08/31/18 18:16 100 H 96 08/31/18 18:11 107 H 97 08/31/18 18:06 107 H 98 08/31/18 18:01 104 H 98 08/31/18 17:56 92 H 98 08/31/18 17:51 90 97 08/31/18 17:46 92 H 98 08/31/18 17:43 95 H 146/83 87 08/31/18 17:41 100 H 97 08/31/18 17:36 90 96 08/31/18 17:31 98 H 97 08/31/18 17:26 91 H 97 08/31/18 17:21 103 H 97 08/31/18 17:16 99 H 97 08/31/18 17:11 82 97 08/31/18 17:06 89 96 08/31/18 17:01 90 96 08/31/18 16:56 85 95 08/31/18 16:51 87 96 08/31/18 16:46 89 95 08/31/18 16:43 90 128/78 91 08/31/18 16:41 94 H 98 08/31/18 16:36 95 H 97 08/31/18 16:31 88 97 08/31/18 16:26 94 H 97 08/31/18 16:21 93 H 97 08/31/18 16:16 99 H 97 08/31/18 16:11 85 96 08/31/18 16:06 94 H 97 08/31/18 16:01 91 H 97 08/31/18 15:56 92 H 97 08/31/18 15:51 97 H 96 08/31/18 15:46 95 H 96 08/31/18 15:41 93 H 96 08/31/18 15:36 99 H 97 08/31/18 15:32 97 H 125/65 08/31/18 15:30 103 H 96 08/31/18 15:25 98 H 97 08/31/18 15:20 93 H 96 08/31/18 15:18 99 H 137/65 08/31/18 15:15 95 H 97 08/31/18 15:14 101 H 79 L 08/31/18 15:10 98 H 100 08/31/18 15:09 97 H 91 08/31/18 15:04 96 H 92 08/31/18 15:03 98 H 91 08/31/18 15:02 97 H 144/79 08/31/18 14:59 106 H 92 08/31/18 14:57 101 H 91 08/31/18 14:54 98 H 91 08/31/18 14:50 100 H 91 08/31/18 14:49 103 H 92 08/31/18 14:47 93 H 139/80 08/31/18 14:44 101 H 91 08/31/18 14:39 101 H 91 08/31/18 14:34 96 H 93 08/31/18 14:33 100 H 137/76 08/31/18 14:29 107 H 93 08/31/18 14:28 109 H 88 08/31/18 14:24 98 H 93 08/31/18 14:19 97 H 94 08/31/18 14:17 99 H 123/57 08/31/18 14:14 102 H 94 08/31/18 14:09 98 H 94 08/31/18 14:04 95 H 95 08/31/18 14:03 96 H 113/56 08/31/18 13:59 96 H 95 08/31/18 13:54 91 H 98 08/31/18 13:49 103 H 96 08/31/18 13:47 90 129/67 08/31/18 13:44 92 H 98 08/31/18 13:39 92 H 98 08/31/18 13:34 96 H 99 08/31/18 13:32 96 H 138/69 08/31/18 13:29 99 H 100 08/31/18 13:24 89 98 08/31/18 13:19 90 100 08/31/18 13:17 96 H 134/64 08/31/18 13:14 100 H 100 08/31/18 13:09 100 H 100 08/31/18 13:04 97 H 100 08/31/18 13:03 92 H 133/60 08/31/18 12:59 101 H 98 08/31/18 12:54 94 H 95 08/31/18 12:49 96 H 94 08/31/18 12:48 101 H 131/74 08/31/18 12:44 101 H 86 08/31/18 12:39 95 H 97 08/31/18 12:34 92 H 98 08/31/18 12:32 92 H 126/76 08/31/18 12:29 92 H 94 08/31/18 12:24 92 H 97 08/31/18 12:19 93 H 97 08/31/18 12:17 90 122/75 08/31/18 12:14 89 98 08/31/18 12:09 89 97 08/31/18 12:04 92 H 99 08/31/18 12:02 93 H 134/82 08/31/18 11:59 87 99 08/31/18 11:54 89 100 08/31/18 11:49 92 H 96 08/31/18 11:47 88 136/84 08/31/18 11:33 91 H 131/77 08/31/18 11:32 91 H 131/77 08/31/18 11:17 94 H 128/70 08/31/18 11:11 98 H 98 08/31/18 11:06 107 H 120/63 96 08/31/18 11:02 95 H 118/58 08/31/18 11:01 98 H 95 08/31/18 10:56 100 H 97 08/31/18 10:52 102 H 82 L 08/31/18 10:51 95 H 94 08/31/18 10:47 101 H 128/67 08/31/18 10:46 95 H 96 08/31/18 10:41 98 H 98 08/31/18 10:36 91 H 96 08/31/18 10:33 96 H 129/61 08/31/18 10:31 93 H 95 08/31/18 10:26 98 H 95 08/31/18 10:21 97 H 95 08/31/18 10:17 101 H 120/59 08/31/18 10:16 98 H 95 08/31/18 10:11 97 H 95 08/31/18 10:09 98 H 118/56 08/31/18 10:06 96 H 97 08/31/18 10:01 98 H 95 Intake and Output 08/31/18 09/01/18 09/01/18 23:59 07:59 15:59 Intake Total 1360 1000 Output Total 500 1700 Balance 860 -700 Intake: IV 1000 1000 Lactated Ringers 1,000 ml 1000 @ 125 mls/hr IV DIRECT [facility]ADOR Rx#:[id number] MAGNESIUM SULFATE 40GM/ 1000 1000ML 40 gm In 1,000 ml @ 2 GM/HR 50 mls/hr IV DIRECT AMADOR Rx#:[id number] Oral 360 Output: Urine 500 1700 Indwelling Catheter 500 1700 Other: Total, Intake Amount 360 Total, Output Amount 500 500 - Exam Lungs: Present: Clear to auscultation Abdomen: Present: normal appearance, soft Vulva: both: normal Uterus: Present: normal, firm, fundal height at umbilicus Extremities: Present: normal Comments: small lochia - Labs Labs: Abnormal lab results 08/31/18 Range/Units 10:02 Magnesium 4.00 H (1.7-2.3) mg/dL
[2018-09-01] MEDS: NORCO 5/325 PO PRN ×2 (10:15→22:13)
[2018-09-01] MEDS: IBUPROFEN PO SCH ×2 (13:10→19:08)
[2018-09-02] MEDS: IBUPROFEN PO SCH (04:35)
[2018-09-02] MEDS: NORCO 5/325 PO PRN ×3 (04:37→20:00)
[2018-09-02] MEDS: NORMODYNE PO SCH ×2 (12:08→22:38)
--- NOTE | 2018-09-02 12:33 | Progress Note ---
Assessment and Plan A: day 2 S/P . Chronic hypertension with superimposed preeclampsia. P: Monitor BPs. Continue Labetalol 300 mg po BID. Anticipate discharge tomorrow if BPs stable. Subjective - Subjective Date of service: 09/02/18 Principal diagnosis: PPD #2; s/p ; CHTN w/superimposed pre-eclampsia. Interval history: day 2 S/P , chronic hypertension with superimposed preeclampsia. Patient is doing well. She reports she is voiding without difficulty, ambulating well, and tolerating a regular diet. Patient denies headache, visual disturbance, nausea or vomiting, abdominal or epigastric pain, chest pain, shortness of breath, leg pain, heavy vaginal bleeding, or any other problems. Patient reports lochia is moderate to light. Patient is bottlefeeding and . Patient is receiving Labetalol PO. Patient reports: appetite normal, voiding normally, pain well controlled, flatus, ambulating normally, no dizzy ambulation, no nauseated [place]: doing well Objective - Vital Signs Latest vital signs: Vital Signs Temp Pulse Resp BP BP Pulse Ox 09/02/18 08:02 97.4 F L 71 18 153/88 09/02/18 04:37 18 09/02/18 00:53 98.1 F 93 H 20 124/81 93 09/01/18 22:13 20 09/01/18 22:12 91 H 147/96 09/01/18 21:10 98.3 F 91 H 18 147/96 95 09/01/18 16:35 98.3 F 88 18 131/79 94 Intake and Output 09/01/18 09/02/18 09/02/18 23:59 07:59 15:59 Intake Total 1200 360 Balance 1200 360 Intake: Oral 720 360 Intake, Free Water 480 Other: Total, Intake Amount 120 360 - Exam Cardiovascular: Present: Regular rate, Normal S1, Normal S2 Lungs: Present: Clear to auscultation Abdomen: Present: normal appearance, soft. Absent: distention, tenderness, guarding, rigidity Uterus: Present: normal, firm, fundal height below umbilicus. Absent: bogginess, tenderness Extremities: Present: normal, edema (mild edema of bilateral lower extremities). Absent: tenderness
[2018-09-03] MEDS: NORCO 5/325 PO PRN (06:14)
[2018-09-03] MEDS ORDERED: DERMOPLAST TP PRN (07:29)
[2018-09-03 08:38] VITALS: BP 137/78
--- NOTE | 2018-09-03 08:53 | Vascular Lab Report ---
FINAL REPORT EXAM: VL VENOUS DUPLEX LE BILAT HISTORY: calf tenderness TECHNIQUE: Grayscale, color and spectral Doppler ultrasound evaluation of both lower extremities for DVT PRIORS: None. FINDINGS: Respiratory variation , compressibility and response to augmentation within the deep veins of the rig ht lower extremity are within normal limits. Respiratory variation, compressibility and response to augmentation in the deep veins of the left low er extremity above the knee are also within normal limits. IMPRESSION: No sonographic evidence of deep vein thrombosis within the imaged portion of either lower extremity.
[2018-09-03] MEDS: NORMODYNE PO SCH (10:34)
--- NOTE | 2018-09-03 13:34 | Progress Note ---
Assessment and Plan A: day 3 S/P . Chronic hypertension with superimposed preeclampsia. Stable BPs on Labetalol. P: Discharge patient home today. Advised patient to continue to take Labetalol 300 mg po BID at home (patient states she has plenty of Labetalol 300 mg at home). Advised patient to continue vitamin daily at home. discharge instructions and warning signs discussed in detail with patient. Advised patient to avoid intercourse, lifting and heavy housework, driving, tub baths. Advised patient to call [facility] and obtain follow up visit in 2 days for BP check. Advised patient re: BP warning signs. Signs and symptoms of depression discussed with patient. Patient voiced understanding of all instructions and states she will continue taking her BP medication at home as advised. Subjective - Subjective Date of service: 09/03/18 Principal diagnosis: PPD #3; s/p ; CHTN w/superimposed pre-eclampsia. Interval history: day 3 S/P , chronic hypertension with superimposed preeclampsia. Patient is doing well. She reports she is voiding without difficulty, ambulating well, and tolerating a regular diet. Patient denies headache, visual disturbance, nausea or vomiting, abdominal or epigastric pain, chest pain, shortness of breath, leg pain, heavy vaginal bleeding, or any other problems. Patient reports lochia is moderate to light. Patient is bottlefeeding and . Patient is taking Labetalol PO. Bilateral venous doppler negative this morning. Patient denies leg pain. She reports mild bilateral ankle and feet edema. Patient reports: appetite normal, voiding normally, pain well controlled, flatus, ambulating normally, no dizzy ambulation, no nauseated [place]: doing well Objective - Vital Signs Latest vital signs: Vital Signs Temp Pulse Resp BP BP 09/03/18 10:34 78 137/78 09/03/18 07:12 97.7 F 73 18 137/78 09/03/18 06:14 22 09/02/18 23:30 98.7 F 69 18 122/78 09/02/18 22:38 80 135/78 09/02/18 20:00 20 09/02/18 16:00 98.0 F 96 H 20 141/84 Intake and Output 09/02/18 09/03/18 09/03/18 23:59 07:59 15:59 Intake Total 660 Balance 660 Intake: Oral 360 Intake, Free Water 300 Other: Total, Intake Amount 360 # Voids Void 1 - Exam Cardiovascular: Present: Regular rate, Normal S1, Normal S2 Lungs: Present: Clear to auscultation Abdomen: Present: normal appearance, soft. Absent: distention, tenderness, guarding, rigidity Uterus: Present: normal, firm, fundal height below umbilicus. Absent: bogginess, tenderness Extremities: Present: normal, edema (mild bilateral ankle and feet edema). Absent: tenderness
--- NOTE | 2018-09-03 13:41 | Discharge Summary ---
Providers - Providers Date of Admission: 08/30/18 10:59 Date of discharge: 09/03/18 Attending physician: REBECCA VALENZUELA MD None Primary care physician: REBECCA VALENZUELA MD Hospitalization Reason for admission: induction of labor Delivery: Episiotomy: none Laceration: none Other procedures: none complications: none Discharge diagnosis: IUP at term delivered [place] baby: female Pertinent studies: Labs Hospital course: Normal hospital course Condition at discharge: Good Disposition: DC-01 TO HOME OR SELFCARE Plan - Provider Discharge Summary Activity: routine, no sex for 6 weeks, no heavy lifting 4 weeks, no strenuous exercise Diet: routine Instructions: routine Additional instructions: Continue taking your Labetalol 300 mg by mouth every 12 hours at home. Follow up at [facility] on Tuesday09/05/18 for a BP check. Call your doctor immediately for: * Fever > 100.5 * Heavy vaginal bleeding ( >1 pad per hour) * Severe persistent headache * Shortness of breath * Reddened, hot, painful area to leg or breast - Follow up plan Follow up: REBECCA VALENZUELA MD [Primary Care Provider] - 09/05/18
== END 2018-09-03 16:30 | disposition home or self-care (01) | DRG 807 ==
LOC: LD 10:59 → OB 09-01 11:38
PROVIDERS: ADMIT Obstetrics & Gynecology; ATTEND Obstetrics & Gynecology
PROC: 10E0XZZ Delivery of Products of Conception, External Approach (ICD-10-PCS; principal; 2018-08-31)
PROC: 10907ZC Drainage of Amniotic Fluid, Therapeutic from Products of Conception, Via Natural or Artificial Opening (ICD-10-PCS; 2018-08-31)
PROC: 3E0R3BZ Introduction of Anesthetic Agent into Spinal Canal, Percutaneous Approach (ICD-10-PCS; 2018-08-31)
PROC: 00HU33Z Insertion of Infusion Device into Spinal Canal, Percutaneous Approach (ICD-10-PCS; 2018-08-31)
DX: O11.4 Pre-existing hypertension with pre-eclampsia, complicating childbirth (principal); Z37.0 Single live birth; O99.52 Diseases of the respiratory system complicating childbirth; O99.214 Obesity complicating childbirth; E66.01 Morbid (severe) obesity due to excess calories; O99.824 Streptococcus B carrier state complicating childbirth; J45.909 Unspecified asthma, uncomplicated; Z3A.38 38 weeks gestation of pregnancy
CPT/HCPCS: 36415; 81001; 82565; 82962; 83615; 83735; 84450; 84460; 84550; 85014; 85018; 85027; 86850; 86900; 86901; 88307; 93970; G0378; J0290; J0360; J0595; J1200; J2405; J2590; J2930; J3475; J7120

== ENCOUNTER 2018-09-05 17:21 | Observation (INO) | payer BC, MEDICAID ==
--- NOTE | 2018-09-05 18:28 | History and Physical Report ---
History of Present Illness Date of admission: 09/05/18 17:50 Chief complaint: blood pressures 180-190/110s persistent headache History of present illness: 33yo PPD #5 transferred from clinic for chronic hypertension superimposed preeclampsia due to BPs in clinic are 190/110s 180/110s. She had the same diagnosis at delivery and underwent 24hrs of magnesium sulfate for seizure prophylaxis. Today she presents to clinic stating "I feel miserable". She has a persistent headache x 1 day. She denies blurry vision or RUQ pain. She is on Labetolol 300mg PO BID and took a dose this morning. She was discharged from [facility] on 09/03/17 with well-controlled blood p ressures. Today in clinic she weighed 344lbs. Past History Past Medical History: asthma, hypertension Social history: - Obstetrical History : 3 Number of Living Children: 2 Medications and Allergies Allergies Allergy/AdvReac Type Severity Reaction Status Date / Time shellfish derived Allergy Severe Anaphylaxis Verified 08/30/18 11:49 aspirin Allergy Hives Verified 08/30/18 11:49 Iodinated Contrast- Oral and Allergy Anaphylaxis Verified 08/30/18 11:49 IV Dye iodine Allergy Hives Verified 08/30/18 11:49 Home Medications Medication Instructions Recorded Confirmed Last Taken Type Acetaminophen [Tylenol Arthritis] 650 mg PO Q6HR PRN #30 tablet.er 04/01/18 08/31/18 08/17/18 Rx Vit Calc,Iron,Folic 1 each PO QDAY #30 tablet 04/01/18 08/31/18 08/18/18 Rx [ Vitamins] Labetalol [Normodyne TAB] 300 mg PO BID 08/18/18 08/31/18 08/18/18 19:00 History Active Meds: Active Medications Labetalol HCl (Normodyne) 300 mg PO BID AMADOR - Vital Signs Vital signs: Vital Signs Pulse BP 74 175/83 09/05/18 18:07 09/05/18 18:07 Temp Pulse Resp BP Pulse Ox 74 175/83 09/05/18 18:07 09/05/18 18:07 Results All other labs normal. Assessment and Plan - Patient Problems (1) Severe pre-eclampsia, Current Visit: Yes Status: Acute Plan to address problem: 1. Admit for blood pressure control. 2. PIH labs 3. Due to blood pressures > 160/100 and persistent headache will start magnesium sulfate for seizure prophylaxis. 4. Labetolol 300 mg PO BID 5. Low sodium diet 6. SCDs. (2) Pre-eclampsia superimposed on chronic hypertension Current Visit: No Status: Acute
[2018-09-05] MEDS ORDERED: CALCIUM GLUCONATE IV ONE (18:33)
[2018-09-05] MEDS ORDERED: MAGNESIUM SULFATE 4GM/100ML 4 GM/100 ML BAG IV ONE (18:33)
[2018-09-05] MEDS ORDERED: APRESOLINE IV PRN (18:33)
[2018-09-05] MEDS ORDERED: LACTATED RINGERS 1,000 ML IV SCH (19:00)
[2018-09-05] MEDS ORDERED: NORMODYNE PO SCH (19:00)
[2018-09-05] MEDS ORDERED: MAGNESIUM SULFATE 40GM/1000ML 40 GM/1,000 ML BAG IV SCH (19:00)
[2018-09-05] MEDS ORDERED: BENADRYL PO PRN (19:02)
[2018-09-05] MEDS ORDERED: TYLENOL PO PRN (19:02)
[2018-09-05 19:04] LABS: Hematocrit 36.4 % (30.3-42.9); Hemoglobin 12.3 gm/dl (10.1-14.3); Mean Corpuscular HGB Conc 34 % (30-34); Mean Corpuscular Volume 91 fl (79-97); Platelet Count 346 K/mm3 (140-440); Red Blood Count 4.01 M/mm3 (3.65-5.03); Red Cell Distribution Width 14.4 % (13.2-15.2)
[2018-09-05 19:21] LABS: Alanine Aminotransferase 83 units/L (7-56)
[2018-09-06 01:55] VITALS: BP 162/106
--- NOTE | 2018-09-08 09:01 | Event Note ---
I was contacted by charge nurse, Niecy stating that the patient has decided to leave AGAINST MEDICAL ADVICE. Per report she states she called the nurse to her room and no one came so she is leaving. She is aware of the risks of preeclampsia and magnesium sulfate including CARDIAC AND RESPIRATORY DISTRESS, SEIZURES and . The patient left the hospital AGAINST MEDICAL ADVICE.
== END 2018-09-06 02:10 | disposition left against medical advice (07) ==
LOC: 3A 17:21 → UNDOADMIN 17:21 → LD 17:50
PROVIDERS: ADMIT Obstetrics & Gynecology; ATTEND Obstetrics & Gynecology
DX: O14.15 Severe pre-eclampsia, complicating the puerperium (principal); O10.93 Unspecified pre-existing hypertension complicating the puerperium
CPT/HCPCS: 36415; 82565; 83615; 84450; 84460; 84550; 85027; 96365; G0378; G0379; J3475; J7120

== ENCOUNTER 2019-09-19 23:53 | Emergency (ER) | payer BC, MEDICAID, MEDICARE ==
[2019-09-19 23:59] VITALS: BP 172/107
--- NOTE | 2019-09-20 01:01 | Emergency Department Report ---
ED Back Pain/Injury HPI - General Chief Complaint: Back Pain/Injury Stated Complaint: BACK AND SHOULDER PAIN Time Seen by Provider: 09/20/19 00:52 Source: patient Limitations: No Limitations - History of Present Illness MD Complaint: back pain - Related Data Home Medications Medication Instructions Recorded Confirmed Last Taken labetaloL [Labetalol 100mg TAB] 300 mg PO BID 08/18/18 08/31/18 08/18/18 19:00 Previous Rx's Medication Instructions Recorded Last Taken Type Acetaminophen [Tylenol Arthritis] 650 mg PO Q6HR PRN #30 tablet.er 04/01/18 08/17/18 Rx Vit Calc,Iron,Folic 1 each PO QDAY #30 tablet 04/01/18 08/18/18 Rx [ Vitamins] Allergies Allergy/AdvReac Type Severity Reaction Status Date / Time shellfish derived Allergy Severe Anaphylaxis Verified 08/30/18 11:49 aspirin Allergy Hives Verified 08/30/18 11:49 Iodinated Contrast Media Allergy Anaphylaxis Verified 08/30/18 11:49 iodine Allergy Hives Verified 08/30/18 11:49 ED Review of Systems ROS: Stated complaint: BACK AND SHOULDER PAIN Other details as noted in HPI ED Past Medical Hx - Past Medical History Previous Medical History?: Yes Hx Hypertension: Yes (LABETELOL 300 BID) Hx Congestive Heart Failure: No Hx Diabetes: No Hx Deep Vein Thrombosis: No Hx Renal Disease: No Hx Sickle Cell Disease: No Hx Seizures: No Hx Asthma: Yes Hx COPD: No Hx HIV: No - Surgical History Past Surgical History?: No - Social History Smoking Status: Current Every Day Smoker Substance Use Type: None - Medications Home Medications: Home Medications Medication Instructions Recorded Confirmed Last Taken Type Acetaminophen [Tylenol Arthritis] 650 mg PO Q6HR PRN #30 tablet.er 04/01/18 08/31/18 08/17/18 Rx Vit Calc,Iron,Folic 1 each PO QDAY #30 tablet 04/01/18 08/31/18 08/18/18 Rx [ Vitamins] labetaloL [Labetalol 100mg TAB] 300 mg PO BID 08/18/18 08/31/18 08/18/18 19:00 History ED Physical Exam - General Limitations: No Limitations ED Course Vital Signs 09/19/19 23:56 Temperature 98.2 F Pulse Rate 87 Respiratory 14 Rate Blood Pressure 172/107 O2 Sat by Pulse 98 Oximetry Critical care attestation.: If time is entered above; I have spent that time in minutes in the direct care of this critically ill patient, excluding procedure time. ED Disposition Condition: Stable
--- NOTE | 2019-09-20 01:05 | Emergency Department Report ---
Chief Complaint: Back Pain/Injury Stated Complaint: BACK AND SHOULDER PAIN Time Seen by Provider: 09/20/19 00:52 - HPI History of Present Illness: 34-year-old morbid obese hypertensive patient comes in for right shoulder and back pain 1 week. Patient denies any trauma. Patient states that the pain is on her upper shoulder towards her neck and mid back. Patient reports she's taken Tylenol has not helped. 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 It was noted the patient's blood pressure was 172/107. Patient reports not taking anything for her blood pressure. Last time she saw her health careers instructor is 1 year ago. Patient reports she last saw her primary care provider was 6 months ago. - Exam Vital Signs: Vital Signs 09/19/19 23:56 Temperature 98.2 F Pulse Rate 87 Respiratory 14 Rate Blood Pressure 172/107 O2 Sat by Pulse 98 Oximetry Physical Exam: Alert and oriented 3 no acute distress obese Back full range of motion right trapezius tenderness. No Vertebral tenderness, no joint tenderness of the shoulder Patient has very large breasts. Ambulatory without difficulties MSE screening note: Focused history and physical exam performed. Due to findings the following was ordered: 34-year-old morbid obese hypertensive patient comes in for right shoulder and back pain 1 week. Patient denies any trauma. Patient states that the pain is on her upper shoulder towards her neck and mid back. Patient reports she's taken Tylenol has not helped. 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 It was noted the patient's blood pressure was 172/107. Patient reports not taking anything for her blood pressure. Last time she saw her health careers instructor is 1 year ago. Patient reports she last saw her primary care provider was 6 months ago. Discussed with patient that she can use [id number] muscle rub. Discussed the patient is very important for her to follow up with her primary care provider and health careers instructor as her blood pressures elevated. Patient is asymptomatic at this time. Patient is noncompliant on medication. ED Disposition for MSE Clinical Impression: Severely overweight, Noncompliance with medication regimen Muscle strain of right shoulder region Qualifiers: Encounter type: initial encounter Qualified Code(s): S46.911A - Strain of unspecified muscle, fascia and tendon at shoulder and upper arm level, right arm, initial encounter Hypertension Qualifiers: Hypertension type: essential hypertension Qualified Code(s): I10 - Essential (primary) hypertension Disposition: DC-01 TO HOME OR SELFCARE Is pt being admited?: No Does the pt Need Aspirin: No Condition: Stable Instructions: Muscle Strain (ED), Obesity (ED), Hypertension (ED) Additional Instructions: Try using [id number] muscle rub. Follow-up which her primary care provider and health careers instructor.
== END 2019-09-20 01:20 | disposition home or self-care (01) ==
LOC: ED 23:53
DX: S46.911A Strain of unspecified muscle, fascia and tendon at shoulder and upper arm level, right arm, initial encounter (principal); M54.9 Dorsalgia, unspecified; I10 Essential (primary) hypertension; E66.3 Overweight; Z91.14 Patient's other noncompliance with medication regimen; Z91.013 Allergy to seafood; Z88.6 Allergy status to analgesic agent; Z91.041 Radiographic dye allergy status; X58.XXXA Exposure to other specified factors, initial encounter; Y93.89 Activity, other specified; Y92.89 Other specified places as the place of occurrence of the external cause; Y99.8 Other external cause status

== ENCOUNTER 2019-12-25 11:45 | Emergency (ER) | payer SELFPAY ==
[2019-12-25 11:59] VITALS: BP 157/100
--- NOTE | 2019-12-25 12:15 | Emergency Department Report ---
ED Abdominal Pain HPI - General Chief Complaint: Vaginal Bleeding Stated Complaint: 6 WKS BLEEDING/PAIN Time Seen by Provider: 12/25/19 12:10 Source: patient Mode of arrival: Ambulatory Limitations: No Limitations - History of Present Illness Initial Comments: Patient is a 34-year-old -[place] female comes to the ER with a 6-week history of vaginal bleeding. She has not seen her [employer] which is [facility]. She states that she has a history of uterine fibroids. Patient states that she has having suprapubic pain. Patient denies any concern for STI. She denies chest pain shortness of breath fever or chills. She denies nausea vomiting tori rrhea or constipation. Patient has taking no medications prior to arrival in the ER. Patient is ambulatory and nontoxic on arrival to the ER. -: Gradual, week(s) Quality: cramping Consistency: constant Improves With: nothing Worsens With: nothing Associated Symptoms: denies other symptoms - Related Data Home Medications Medication Instructions Recorded Confirmed Last Taken labetaloL [Labetalol 100mg TAB] 300 mg PO BID 08/18/18 08/31/18 08/18/18 19:00 Previous Rx's Medication Instructions Recorded Last Taken Type Ciprofloxacin HCl [Ciprofloxacin 500 mg PO Q12HR #14 tab 12/25/19 Unknown Rx TAB] traMADoL [Ultram] 50 mg PO Q6HR PRN #10 tablet 12/25/19 Unknown Rx Allergies Allergy/AdvReac Type Severity Reaction Status Date / Time shellfish derived Allergy Severe Anaphylaxis Verified 12/25/19 13:22 aspirin Allergy Hives Verified 12/25/19 13:22 Iodinated Contrast Media Allergy Anaphylaxis Verified 12/25/19 13:22 iodine Allergy Hives Verified 12/25/19 13:22 ED Review of Systems ROS: Stated complaint: 6 WKS BLEEDING/PAIN Other details as noted in HPI Comment: All other systems reviewed and negative ED Past Medical Hx - Past Medical History Previous Medical History?: Yes Hx Hypertension: Yes (LABETELOL 300 BID) Hx CVA: No Hx Heart Attack/AMI: No Hx Congestive Heart Failure: No Hx Diabetes: No Hx Deep Vein Thrombosis: No Hx Pulmonary Embolism: No Hx GERD: No Hx Liver Disease: No Hx Renal Disease: No Hx of Cancer: No Hx Sickle Cell Disease: No Hx Arthritis: No Hx Headaches / Migraines: No Hx Seizures: No Hx Kidney Stones: No Hx Psychiatric Treatment: No Hx Asthma: Yes Hx COPD: No Hx Tuberculosis: No Hx Dementia: No Hx HIV: No Additional medical history: uterine fibroid - Surgical History Past Surgical History?: No - Family History Family history: no significant - Social History Smoking Status: Current Every Day Smoker Substance Use Type: None - Medications Home Medications: Home Medications Medication Instructions Recorded Confirmed Last Taken Type labetaloL [Labetalol 100mg TAB] 300 mg PO BID 08/18/18 08/31/18 08/18/18 19:00 History Ciprofloxacin HCl [Ciprofloxacin 500 mg PO Q12HR #14 tab 12/25/19 Unknown Rx TAB] traMADoL [Ultram] 50 mg PO Q6HR PRN #10 tablet 12/25/19 Unknown Rx ED Physical Exam - General Limitations: No Limitations General appearance: alert, in no apparent distress - Head Head exam: Present: atraumatic, normocephalic - Eye Eye exam: Present: normal appearance - ENT ENT exam: Present: mucous membranes moist - Neck Neck exam: Present: normal inspection - Respiratory Respiratory exam: Present: normal lung sounds bilaterally. Absent: respiratory distress - Cardiovascular Cardiovascular Exam: Present: regular rate, normal rhythm. Absent: systolic murmur, diastolic murmur, rubs, gallop - GI/Abdominal GI/Abdominal exam: Present: soft, normal bowel sounds - Extremities Exam Extremities exam: Present: normal inspection - Back Exam Back exam: Present: normal inspection - Neurological Exam Neurological exam: Present: alert, oriented X3 - Psychiatric Psychiatric exam: Present: normal affect, normal mood - Skin Skin exam: Present: warm, dry, intact, normal color. Absent: rash ED Course Vital Signs 12/25/19 11:58 Temperature 98.2 F Pulse Rate 86 Respiratory 20 Rate Blood Pressure 157/100 O2 Sat by Pulse 99 Oximetry ED Medical Decision Making - Lab Data Result diagrams: 12/25/19 12:34 - Medical Decision Making Labs 12/25/19 12/25/19 12:08 12:34 WBC 7.1 RBC 3.69 Hgb 9.7 L Hct 30.3 MCV 82 MCH 26 L MCHC 32 RDW 14.8 Plt Count 436 Urine Color Yellow Urine Turbidity Cloudy Urine pH 6.0 Ur Specific [place] 1.019 Urine Protein 30 mg/dl Urine Glucose (UA) Neg Urine Ketones Neg Urine Blood Lg Urine Nitrite Neg Urine Bilirubin Neg Urine Urobilinogen < 2.0 Ur Leukocyte Esterase Tr Urine WBC (Auto) 49.0 H Urine RBC (Auto) > 182.0 Urine HCG, Qual Negative Vital Signs (72 hours) 12/25/19 11:58 Temperature 98.2 F Pulse Rate 86 Respiratory 20 Rate Blood Pressure 157/100 O2 Sat by Pulse 99 Oximetry - Differential Diagnosis ro preg/ ro anemia/ ro uti Critical care attestation.: If time is entered above; I have spent that time in minutes in the direct care of this critically ill patient, excluding procedure time. ED Disposition Clinical Impression: DUB (dysfunctional uterine bleeding), UTI (urinary tract infection), History of chronic hypertension Disposition: - TO HOME OR SELFCARE Is pt being admited?: No Does the pt Need Aspirin: No Condition: Stable Instructions: Dysfunctional Uterine Bleeding (ED) Prescriptions: Ciprofloxacin HCl [Ciprofloxacin TAB] 500 mg PO Q12HR #14 tab traMADoL [Ultram] 50 mg PO Q6HR PRN #10 tablet PRN Reason: Pain Referrals: TI ALEJO [Other] - 3-5 Days TONY TIJERINA MD [Staff Physician] - 3-5 Days POPEYE CORMIER MD [Staff Physician] - 3-5 Days Time of Disposition: 13:06
[2019-12-25 12:47] LABS: Bilirubin,Urine NEG (Negative); Blood,Urine LG (Negative); Color,Urine Yellow (Yellow); Urobilinogen,Urine < 2.0 mg/dL (<2.0)
[2019-12-25 12:49] LABS: RBC,Urine > 182.0 /HPF (0.0-6.0)
[2019-12-25 12:50] LABS: Hematocrit 30.3 % (30.3-42.9); Hemoglobin 9.7 gm/dl (10.1-14.3); Mean Corpuscular HGB Conc 32 % (30-34); Mean Corpuscular Volume 82 fl (79-97); Platelet Count 436 K/mm3 (140-440); Red Blood Count 3.69 M/mm3 (3.65-5.03); Red Cell Distribution Width 14.8 % (13.2-15.2)
[2019-12-25 12:50] LABS: HCG Qualitative,Urine Negative (Negative)
[2019-12-25] MEDS ORDERED: HYDROcodone/ACETAMINOPHEN 5-325 MG TAB PO ONE (13:14)
[2019-12-25] MEDS ORDERED: levoFLOXacin 500 MG TAB PO ONE (13:14)
== END 2019-12-25 13:30 | disposition home or self-care (01) ==
LOC: ED 11:45
DX: N93.8 Other specified abnormal uterine and vaginal bleeding (principal); N39.0 Urinary tract infection, site not specified; I10 Essential (primary) hypertension; J45.909 Unspecified asthma, uncomplicated; F17.200 Nicotine dependence, unspecified, uncomplicated; Z79.2 Long term (current) use of antibiotics; Z79.899 Other long term (current) drug therapy; Z91.013 Allergy to seafood; Z88.8 Allergy status to other drugs, medicaments and biological substances
CPT/HCPCS: 36415; 81001; 81025; 85027; 87086; 99283